=== PATIENT | male | born 1965 | race African-American/Black ===

== ENCOUNTER 2016-11-28 09:58 | Emergency (ER) | payer OTHER ==
[~2016-11-28] VITALS: Ht 188 cm; Wt 81.6 kg
[~2016-11-28 09:58] MED LIST: ALBUTEROL SULF8.5 GM INH; ALBUTEROL2.5 MG/3 M HHN; ALBUTEROL2.5 MG/3 M INH; AZITHROMYCIN250 MG ORAL; GABAPENTIN300 MG ORAL; IBUPROFEN200 MG ORAL; METFORMIN HCL500 M1 ORAL; NKM; NORCO 5-325 TA1 EACH ORAL; PREDNISONE20 MG ORAL; PREDNISONE20 MG PO
[2016-11-28 10:00] VITALS: BP 110/72
[2016-11-28] MEDS ORDERED: Neosporin Oint Ud Pkt TOP ONE (10:15)
[2016-11-28] MEDS ORDERED: IBUPROFEN600 MG ORAL (11:00)
[2016-11-28] MEDS ORDERED: TRAMADOL HCL50 MG ORAL (11:00)
[2016-11-28 11:20] VITALS: BP 110/72
--- NOTE | 2016-11-28 12:46 | Diagnostic Imaging Report ---
Indication: Pain Findings: 3 views of the right wrist were obtained. There is an acute ulnar styloid fracture demonstrated. There is soft tissue swelling over the colon and dorsum of the hand. Alignment is normal. Impression: Acute ulna styloid fracture. Soft tissue swelling
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
== END 2016-11-28 11:20 | disposition home or self-care (01) ==
LOC: EDBD 09:58 → EMR 10:33
DX: S62.101A Fracture of unspecified carpal bone, right wrist, initial encounter for closed fracture (principal); V29.9XXA Motorcycle rider (driver) (passenger) injured in unspecified traffic accident, initial encounter; Y93.9 Activity, unspecified; Y92.9 Unspecified place or not applicable; E11.9 Type 2 diabetes mellitus without complications; J45.909 Unspecified asthma, uncomplicated
CPT/HCPCS: 29240; 29260; 99284

== ENCOUNTER 2016-12-16 16:57 | Emergency (ER) | payer OTHER ==
[~2016-12-16] VITALS: Ht 185.4 cm; Wt 67.1 kg
[~2016-12-16 16:57] MED LIST changes: +IBUPROFEN600 MG ORAL; +TRAMADOL HCL50 MG ORAL
[2016-12-16 17:10] VITALS: BP 124/76
[2016-12-16 17:43] LABS: BASOPHILS % (AUTO) 0.9 % (0.0-2.0); EOSINOPHILS % (AUTO) 2.9 % (0.0-3.0); LYMPHOCYTES % (AUTO) 29.6 % (20.0-45.0); MEAN CORPUSCULAR HEMOGLOBIN 32.5 PG (27.0-31.0); MEAN CORPUSCULAR HGB CONC 36.1 G/DL (32.0-36.0); MEAN CORPUSCULAR VOLUME 90 FL (80-99); MEAN PLATELET VOLUME 6.9 FL (6.5-10.1); MONOCYTES % (AUTO) 6.1 % (1.0-10.0); NEUTROPHILS % (AUTO) 60.5 % (45.0-75.0); PLATELET COUNT 250 K/UL (150-450); RED BLOOD COUNT 4.93 M/UL (4.70-6.10); RED CELL DISTRIBUTION WIDTH 11.7 % (11.6-14.8); WHITE BLOOD COUNT 9.3 K/UL (4.8-10.8)
[2016-12-16 17:57] LABS: ALANINE AMINOTRANSFERASE 66 U/L (3-41); ALBUMIN/GLOBULIN RATIO 1.3 (1.0-2.7); ANION GAP 15 (5-15); ASPARTATE AMINO TRANSFERASE 52 U/L (5-40); CALCIUM 9.1 mg/dL (8.6-10.2); CARBON DIOXIDE 24 mEQ/L (20-30); CHLORIDE 95 mEQ/L (98-107); CREATININE 1.1 mg/dL (0.7-1.2); GLOMERULAR FILTRATION RATE > 60 mL/min (>60); HEMOLYSIS 3; MAGNESIUM 1.7 mg/dL (1.7-2.5); POTASSIUM 4.6 mEQ/L (3.4-4.9); SODIUM 134 mEQ/L (135-145); TOTAL PROTEIN 6.8 g/dL (6.6-8.7)
[2016-12-16 19:04] VITALS: BP 115/97
[2016-12-16 19:16] LABS: APPEARANCE,URINE CLEAR; KETONES,URINE NEGATIVE (NEGATIVE); LEUKOCYTE ESTERASE ,URINE NEGATIVE (NEGATIVE); NITRITE,URINE NEGATIVE (NEGATIVE); PH,URINE 5 (4.5-8.0); PROTEIN,URINE NEGATIVE (NEGATIVE); UROBILINOGEN,URINE NORMAL MG/DL (0.0-1.0)
--- NOTE | 2016-12-17 18:18 | Emergency Room Report ---
History of Present Illness General Chief Complaint: Abnormal Labs Source: Patient Present Illness HPI 51-year-old male presents ED for evaluation. Patient is a diabetic and states he checked his blood sugar this morning and it was critically high. Patient states he is compliant with his medications. Has not missed a dose. Feels dehydrated and weak. Denies any fevers or chills. Denies chest pain or shortness of breath. Denies nausea or vomiting. No other aggravating relieving factors. Denies any other associated symptoms Allergies: Coded Allergies: No Known Allergies (Unverified , 06/15/12) Patient History Past Medical History: DM, asthma Past Surgical History: none Pertinent Family History: none Social History: Denies: alcohol use, drug use, smoking Immunizations: UTD Reviewed Nursing Documentation: PMH: Agreed, PSxH: Agreed Nursing Documentation-PMH Past Medical History: No History, Except For Hx Cardiac Problems: No Hx Hypertension: No Hx Asthma: Yes Hx Diabetes: Yes Review of Systems All Other Systems: negative except mentioned in HPI Physical Exam Vital Signs Date Time Temp Pulse Resp B/P Pulse Ox O2 Delivery O2 Flow Rate FiO2 12/16/16 17:00 98.2 90 18 107/70 96 Room Air Sp02 EP Interpretation: reviewed, normal General Appearance: no apparent distress, alert, GCS 15, non-toxic Head: normocephalic, atraumatic Eyes: bilateral eye PERRL, bilateral eye normal inspection ENT: hearing grossly normal, normal pharynx, no angioedema, normal voice Neck: full range of motion, supple/symm/no masses Respiratory: chest non-tender, lungs clear, normal breath sounds, speaking full sentences Cardiovascular #1: regular rate, rhythm, no edema Cardiovascular #2: 2+ carotid (R), 2+ carotid (L), 2+ radial (R), 2+ radial (L) , 2+ dorsalis pedis (R), 2+ dorsalis pedis (L) Gastrointestinal: normal bowel sounds, non tender, soft, non-distended, no guarding, no rebound Rectal: deferred Genitourinary: normal inspection, no CVA tenderness Musculoskeletal: back normal, gait/station normal, normal range of motion, non- tender Neurologic: alert, oriented x3, responsive, motor strength/tone normal, sensory intact, speech normal Psychiatric: judgement/insight normal, memory normal, mood/affect normal, no suicidal/homicidal ideation Reflexes: 3+ bicep (R), 3+ bicep (L), 3+ tricep (R), 3+ tricep (L), 3+ knee (R) , 3+ knee (L) Skin: normal color, no rash, warm/dry, well hydrated Lymphatic: no adenopathy Medical Decision Making Diagnostic Impression: Primary Impression: Hyperglycemia ER Course Hospital Course 51-year-old male presenting to ED with elevated BS. feeling weak and dehydration Differential diagnoses include: ETOH/drug ingestion, sepsis, DKA Clinical course Patient placed on stretcher. 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 After initial history and physical I ordered labs, IV fluids Labs-glucose 507, no anion gap, bicarbonate normal, electrolytes ok. no leukocytosis. acetone negative After 2 L IV fluids patient Accu-Chek improved. Patient feels better i. I feel this is a highly complex case requiring extensive working including EKG/Rhythm strip, Xray/CT/US, Blood/urine lab work, repeat exams while in ED, and administration of strong opiates/narcotics for pain control, admission to hospital or close patient follow up. diagnosis - hyperglycemia Stable and discharged to home. Followup with PMD. Return to ED if symptoms recur or worsen Labs Test 12/16/16 17:21 12/16/16 18:49 White Blood Count 9.3 K/UL (4.8-10.8) Red Blood Count 4.93 M/UL (4.70-6.10) Hemoglobin 16.0 G/DL (14.2-18.0) Hematocrit 44.4 % (42.0-52.0) Mean Corpuscular Volume 90 FL (80-99) Mean Corpuscular Hemoglobin 32.5 PG (27.0-31.0) Mean Corpuscular Hemoglobin Concent 36.1 G/DL (32.0-36.0) Red Cell Distribution Width 11.7 % (11.6-14.8) Platelet Count 250 K/UL (150-450) Mean Platelet Volume 6.9 FL (6.5-10.1) Neutrophils (%) (Auto) 60.5 % (45.0-75.0) Lymphocytes (%) (Auto) 29.6 % (20.0-45.0) Monocytes (%) (Auto) 6.1 % (1.0-10.0) Eosinophils (%) (Auto) 2.9 % (0.0-3.0) Basophils (%) (Auto) 0.9 % (0.0-2.0) Sodium Level 134 mEQ/L (135-145) Potassium Level 4.6 mEQ/L (3.4-4.9) Chloride Level 95 mEQ/L (98-107) Carbon Dioxide Level 24 mEQ/L (20-30) Anion Gap 15 (5-15) Blood Urea Nitrogen 18 mg/dL (7-23) Creatinine 1.1 mg/dL (0.7-1.2) Estimat Glomerular Filtration Rate > 60 mL/min (>60) Glucose Level 507 mg/dL (74-106) Calcium Level 9.1 mg/dL (8.6-10.2) Magnesium Level 1.7 mg/dL (1.7-2.5) Total Bilirubin 0.2 mg/dL (0.0-1.2) Aspartate Amino Transf (AST/SGOT) 52 U/L (5-40) Alanine Aminotransferase (ALT/SGPT) 66 U/L (3-41) Alkaline Phosphatase 279 U/L (40-129) Total Protein 6.8 g/dL (6.6-8.7) Albumin 3.9 g/dL (3.5-5.2) Globulin 2.9 g/dL Albumin/Globulin Ratio 1.3 (1.0-2.7) Acetone Level Negative (NEGATIVE) Urine Color Pale yellow Urine Appearance Clear Urine pH 5 (4.5-8.0) Urine Specific [place] 1.010 (1.005-1.035) Urine Protein Negative (NEGATIVE) Urine Glucose (UA) 4+ (NEGATIVE) Urine Ketones Negative (NEGATIVE) Urine Occult Blood Negative (NEGATIVE) Urine Nitrite Negative (NEGATIVE) Urine Bilirubin Negative (NEGATIVE) Urine Urobilinogen Normal MG/DL (0.0-1.0) Urine Leukocyte Esterase Negative (NEGATIVE) Last Vital Signs Date Time Temp Pulse Resp B/P Pulse Ox O2 Delivery O2 Flow Rate FiO2 12/16/16 19:04 83 21 115/97 98 Room Air 12/16/16 17:10 98.3 Status: improved Disposition: HOME, SELF-CARE Condition: Stable Referrals: [facility]ERR[facility] (PCP) Patient Instructions: Hyperglycemia, [id number] SANTINO HONG M.D. December 17, 2016 18:18
== END 2016-12-16 19:06 | disposition home or self-care (01) ==
LOC: EDBD 16:57 → EMR 17:20
DX: E11.65 Type 2 diabetes mellitus with hyperglycemia (principal); R53.1 Weakness; J45.909 Unspecified asthma, uncomplicated
CPT/HCPCS: 36415; 80053; 81003; 82009; 82962; 83735; 85025; 96360; 96361

== ENCOUNTER 2017-06-01 20:52 | Emergency (ER) | payer OTHER ==
[~2017-06-01] VITALS: Ht 177.8 cm; Wt 77.1 kg
[2017-06-01] MEDS ORDERED: LANTUS SOL100 UNIT/1 SUBQ (21:00)
[2017-06-01 21:28] VITALS: BP 105/75
--- NOTE | 2017-06-01 21:47 | Emergency Room Report ---
History of Present Illness General Chief Complaint: Generalized Weakness Source: Patient, EMS Present Illness HPI 51-year-old male history of diabetes compliant with medications presenting with generalized weakness and total body pain. Patient states symptoms started today. Cannot give any detailed information, just states that he has generally felt weak and in pain. Pain is worse with movement. Denies any fever chills chest pain shortness of breath nausea vomiting diarrhea. Patient has been eating and drinking well today. Patient came from home. Denies trauma Allergies: Coded Allergies: No Known Allergies (Unverified , 06/15/12) Patient History Past Medical History: see triage record Past Surgical History: none Pertinent Family History: none Reviewed Nursing Documentation: PMH: Agreed, PSxH: Agreed Nursing Documentation-PMH Past Medical History: No History, Except For Hx Cardiac Problems: No Hx Hypertension: No Hx Asthma: Yes Hx Diabetes: Yes Review of Systems All Other Systems: negative except mentioned in HPI Physical Exam Vital Signs Date Time Temp Pulse Resp B/P (MAP) Pulse Ox O2 Delivery O2 Flow Rate FiO2 06/01/17 20:57 98.4 90 16 118/64 95 Room Air Sp02 EP Interpretation: reviewed, normal General Appearance: normal inspection, well appearing, no apparent distress, alert, GCS 15, non-toxic Head: normocephalic, atraumatic Eyes: bilateral eye normal inspection, bilateral eye PERRL, bilateral eye EOMI ENT: normal ENT inspection, normal pharynx, normal voice, moist mucus membranes Neck: normal inspection, full range of motion, supple Respiratory: normal inspection, lungs clear, normal breath sounds, no respiratory distress, no retraction, no wheezing, speaking full sentences, chest symmetrical Cardiovascular #1: normal inspection, regular rate, rhythm, no edema, normal capillary refill Cardiovascular #2: 2+ radial (R), 2+ radial (L) Gastrointestinal: normal inspection, non tender, soft, non-distended, no guarding Genitourinary: no CVA tenderness Musculoskeletal: normal inspection, back normal, normal range of motion, non- tender Neurologic: normal inspection, alert, oriented x3, responsive, motor strength/ tone normal, sensory intact, normal gait, speech normal Psychiatric: normal inspection, judgement/insight normal, memory normal Skin: normal inspection, normal color, no rash, warm/dry, well hydrated, normal turgor Medical Decision Making Diagnostic Impression: Primary Impression: Hyperglycemia Additional Impression: Episode of generalized weakness ER Course 51-year-old male with diabetes, appears very well at bedside, vital signs are normal, presenting with generalized weakness and total body pain DDX: Hypoglycemia, dehydration Rule out DKA Infectious: UTI/pneumonia Plan: Obtain labs, ua, ucx, CXR, EKG Acetone IV fluids ER course: Patient has remained stable during ED stay. Right upper lobe consolidation noted on chest x-ray, patient states a few weeks ago he just had pneumonia, states that he is not having any cough, shortness of breath, fever chills or night sweats. Patient states that he has been a chronic smoker, denies any weight loss. States that he does have a doctor I instructed patient that after discharge she has to followup with a repeat chest x-ray or CAT scan of his chest Received fluids feels much better Disposition: Patient is to be discharged to home. Patient is instructed to follow up with their primary care doctor within 5 days. Strict return precautions discussed with patient such as fever, chills, worsening/severe pain, nausea, vomiting, which may indicate severe illness. Patient verbalizes understanding and agrees with plan. Please note that this Emergency Department Report was dictated using [employer]virtual reality specialist technology software, occasionally this can lead to erroneous entry secondary to interpretation by the dictation equipment EKG Diagnostic Results EP Interpretation: Yes Rate: normal Rhythm: NSR ST Segments: peaked T waves V3 V4 ASA given to patient: No Rhythm Strip EP Interpretation: Yes Rate: 83 Rhythm: NSR, no PVCs, no ectopy Chest X-ray CXR: Ordered: Yes 1 view Indication: Chest pain EP interpretation: Yes Interpretation: Questionable right upper lobe consolidation, possible mass Impression: questionable RUL consolidation/mass compared to 2016 Electronically signed by Kailash Henley MD Laboratory Tests Test 06/01/17 21:18 06/01/17 21:26 Arterial Blood pH 7.496 (7.350-7.450) Arterial Blood Partial Pressure CO2 31.7 mmHg (35.0-45.0) L Arterial Blood Partial Pressure O2 104.4 mmHg (75.0-100.0) H Arterial Blood HCO3 23.9 mmol/L (22.0-26.0) Arterial Blood Oxygen Saturation 97.5 % (92.0-98.0) Arterial Blood Base Excess 1.5 Jacob Test Positive White Blood Count 13.8 K/UL (4.8-10.8) H Red Blood Count 4.64 M/UL (4.70-6.10) L Hemoglobin 14.1 G/DL (14.2-18.0) L Hematocrit 42.8 % (42.0-52.0) Mean Corpuscular Volume 92 FL (80-99) Mean Corpuscular Hemoglobin 30.5 PG (27.0-31.0) Mean Corpuscular Hemoglobin Concent 33.0 G/DL (32.0-36.0) Red Cell Distribution Width 11.4 % (11.6-14.8) L Platelet Count 396 K/UL (150-450) Mean Platelet Volume 6.3 FL (6.5-10.1) L Neutrophils (%) (Auto) 67.9 % (45.0-75.0) Lymphocytes (%) (Auto) 21.2 % (20.0-45.0) Monocytes (%) (Auto) 9.4 % (1.0-10.0) Eosinophils (%) (Auto) 1.0 % (0.0-3.0) Basophils (%) (Auto) 0.5 % (0.0-2.0) Sodium Level 129 MMOL/L (136-145) L Potassium Level 4.7 MMOL/L (3.5-5.1) Chloride Level 95 MMOL/L (98-107) L Carbon Dioxide Level 28 MMOL/L (21-32) Anion Gap 6 mmol/L (5-15) Blood Urea Nitrogen 19 mg/dL (7-18) H Creatinine 1.1 MG/DL (0.55-1.30) Estimate Glomerular Filtration Rate > 60 mL/min (>60) Glucose Level 441 MG/DL (74-106) H Calcium Level 9.3 MG/DL (8.5-10.1) Magnesium Level 1.6 MG/DL (1.8-2.4) L Total Bilirubin 0.3 MG/DL (0.2-1.0) Aspartate Amino Transferase (AST) 16 U/L (15-37) Alanine Aminotransferase (ALT) 18 U/L (12-78) Alkaline Phosphatase 138 U/L (46-116) H Total Protein 7.6 G/DL (6.4-8.2) Albumin 2.7 G/DL (3.4-5.0) L Globulin 4.9 g/dL Albumin/Globulin Ratio 0.6 (1.0-2.7) L Acetone Level Negative (NEGATIVE) Last Vital Signs Date Time Temp Pulse Resp B/P (MAP) Pulse Ox O2 Delivery O2 Flow Rate FiO2 06/01/17 21:28 98.4 87 18 105/75 95 Room Air Disposition: HOME, SELF-CARE Condition: Improved Kailash Henley M.D. Jun 01, 2017 21:47
[2017-06-01 22:01] LABS: BASOPHILS % (AUTO) 0.5 % (0.0-2.0); HEMATOCRIT 42.8 % (42.0-52.0); HEMOGLOBIN 14.1 G/DL (14.2-18.0); LYMPHOCYTES % (AUTO) 21.2 % (20.0-45.0); MEAN CORPUSCULAR VOLUME 92 FL (80-99); MONOCYTES % (AUTO) 9.4 % (1.0-10.0); NEUTROPHILS % (AUTO) 67.9 % (45.0-75.0); PLATELET COUNT 396 K/UL (150-450); RED BLOOD COUNT 4.64 M/UL (4.70-6.10); RED CELL DISTRIBUTION WIDTH 11.4 % (11.6-14.8); WHITE BLOOD COUNT 13.8 K/UL (4.8-10.8)
[2017-06-01 22:13] LABS: ALANINE AMINOTRANSFERASE 18 U/L (12-78); ALBUMIN 2.7 G/DL (3.4-5.0); ALBUMIN/GLOBULIN RATIO 0.6 (1.0-2.7); ALKALINE PHOSPHATASE 138 U/L (46-116); ANION GAP 6 mmol/L (5-15); ASPARTATE AMINO TRANSFERASE 16 U/L (15-37); BILIRUBIN,TOTAL 0.3 MG/DL (0.2-1.0); BLOOD UREA NITROGEN 19 mg/dL (7-18); CALCIUM 9.3 MG/DL (8.5-10.1); CARBON DIOXIDE 28 MMOL/L (21-32); CHLORIDE 95 MMOL/L (98-107); CREATININE 1.1 MG/DL (0.55-1.30); POTASSIUM 4.7 MMOL/L (3.5-5.1); SODIUM 129 MMOL/L (136-145)
[2017-06-01] MEDS ORDERED: Ketorolac 30mg Inj IV ONE (22:30)
[2017-06-01 23:30] VITALS: BP 109/85
[2017-06-02 02:35] VITALS: BP 104/73
[2017-06-02 02:51] VITALS: BP 104/73
--- NOTE | 2017-06-02 09:09 | Diagnostic Imaging Report ---
Indication: PAIN Technique: XRAY CHEST 1 V Comparison:01/16/2016 Findings: The heart is normal in size. There are apical bullous changes. Opacification is noted in the right upper lobe. There is slight blunting of the right left angle is chronic. Bony structures are unremarkable. There also appears to be slight opacification of the left upper lobe but this may have been present previously. Impression: Opacification in the right upper lobe. This has an unusual configuration and may represent infiltrate in the right upper lobe between blade opacification of the bolus. Slight opacification in the left upper lobe, likely chronic. CT chest may be helpful for better evaluation. Report Emphysema.
--- NOTE | 2017-06-02 14:39 | Cardiology Report ---
APPROVED REPORT EKG Measurement Heart [id number] Normal sinus rhythm Left axis deviation Septal infarct, age undetermined Abnormal ECG
--- NOTE | 2017-06-02 14:39 | Cardiology Report ---
APPROVED REPORT EKG Measurement Heart [id number] [place] [id number] Normal sinus rhythm Left axis deviation Septal infarct, age undetermined Abnormal ECG
--- NOTE | 2017-06-02 14:39 | Cardiology Report ---
APPROVED REPORT EKG Measurement Heart [id number] Normal sinus rhythm Left axis deviation Septal infarct, age undetermined Abnormal ECG
== END 2017-06-02 02:51 | disposition home or self-care (01) ==
LOC: EDUNIT# 20:52 → EDBD 20:52 → EMR 21:13
DX: E11.65 Type 2 diabetes mellitus with hyperglycemia (principal); R53.1 Weakness; J45.909 Unspecified asthma, uncomplicated; J43.9 Emphysema, unspecified; Z87.01 Personal history of pneumonia (recurrent); Z87.891 Personal history of nicotine dependence
CPT/HCPCS: 36415; 36600; 71010; 80053; 82009; 82803; 82962; 83735; 85025; 93005; 96374; 96375; 99284; J1815

== ENCOUNTER 2018-10-21 20:20 | Emergency (ER) | payer OTHER ==
[~2018-10-21] VITALS: Ht 172.7 cm; Wt 63.5 kg
[2018-10-21 20:20] VITALS: BP 122/84
[~2018-10-21 20:20] MED LIST changes: +LANTUS SOL100 UNIT/1 SUBQ; +METFORMIN HCL1000 M1 ORAL
--- NOTE | 2018-10-21 20:20 | NUR ---
ED Nurse Note: Patient presents with complaints of chest pain x `1 day, recurrent. Patient reports intermittent pain 10/10 on pain scale. no other s/s reported.
[2018-10-21] MEDS ORDERED: Morphine Sulfate 2mg/ml Inj(IV/IM USE ONLY) IVP ONE (20:45)
[2018-10-21 20:51] LABS: APPEARANCE,URINE CLEAR; BASOPHILS % (AUTO) 0.8 % (0.0-2.0); BILIRUBIN, URINE NEGATIVE (NEGATIVE); COLOR,URINE PALE YELLOW; EOSINOPHILS % (AUTO) 2.7 % (0.0-3.0); GLUCOSE, URINE (UA) 4+ (NEGATIVE); HEMOGLOBIN 16.3 G/DL (14.2-18.0); KETONES,URINE NEGATIVE (NEGATIVE); LEUKOCYTE ESTERASE ,URINE 1+ (NEGATIVE); MEAN CORPUSCULAR VOLUME 91 FL (80-99); MONOCYTES % (AUTO) 6.6 % (1.0-10.0); NEUTROPHILS % (AUTO) 51.9 % (45.0-75.0); NITRITE,URINE NEGATIVE (NEGATIVE); PH,URINE 5 (4.5-8.0); PLATELET COUNT 199 K/UL (150-450); PROTEIN,URINE NEGATIVE (NEGATIVE); RED BLOOD COUNT 5.29 M/UL (4.70-6.10); RED CELL DISTRIBUTION WIDTH 11.1 % (11.6-14.8); UROBILINOGEN,URINE NORMAL MG/DL (0.0-1.0); WHITE BLOOD COUNT 10.3 K/UL (4.8-10.8)
[2018-10-21 20:54] VITALS: BP 126/91
--- NOTE | 2018-10-21 20:56 | NUR ---
ED Nurse Note: Patient tolerated medication well, IV fluids hung, labs drawn, urine specimen collected and sent down to lab. Patient is currently undergoing EKG, instructional technology facilitator at bedside.
[2018-10-21 21:03] LABS: ANION GAP 9 mmol/L (5-15); BLOOD UREA NITROGEN 12 mg/dL (7-18); CALCIUM 9.1 MG/DL (8.5-10.1); CARBON DIOXIDE 27 MMOL/L (21-32); CHLORIDE 98 MMOL/L (98-107); POTASSIUM 3.8 MMOL/L (3.5-5.1); SODIUM 134 MMOL/L (136-145)
[2018-10-21 21:13] LABS: ALANINE AMINOTRANSFERASE 68 U/L (12-78); ALBUMIN 3.7 G/DL (3.4-5.0); ALKALINE PHOSPHATASE 139 U/L (46-116); ASPARTATE AMINO TRANSFERASE 31 U/L (15-37); BILIRUBIN,TOTAL 0.3 MG/DL (0.2-1.0)
--- NOTE | 2018-10-21 21:19 | NUR ---
ED Nurse Note: Patient reports a pain level of 7/10, will inform ERMD.
[2018-10-21] MEDS ORDERED: Insulin Human Regular 100units/ml 3ml IV ONE (21:30)
--- NOTE | 2018-10-21 21:48 | Emergency Room Report ---
History of Present Illness General Chief Complaint: Chest Pain Source: Patient (Matteo Roberts MD) Present Illness HPI 52-year-old male presents ED for evaluation. Brought in by EMS complaining of chest pain. Started earlier today. Midsternal, 8 out of 10, sharp, nonradiating. Denies shortness of breath. Denies history of hypertension. Notes diabetes. Accu-Chek in ED over 400. States he is compliant with his medications. Denies smoking or drug use. States he's been seen at multiple ERs recently for similar chest pain. Has had workups done and was told that everything was normal and was subsequent discharge. No other aggravating relieving factors. Denies any other associated symptoms (Matteo Roberts MD) Allergies: Coded Allergies: No Known Allergies (Unverified , 06/15/12) Patient History Past Medical History: DM, asthma Past Surgical History: none Pertinent Family History: none Social History: Denies: smoking, alcohol use, drug use Immunizations: UTD Reviewed Nursing Documentation: PMH: Agreed; PSxH: Agreed (Matteo Roberts MD) Nursing Documentation-PMH Hx Cardiac Problems: No Hx Hypertension: No Hx Asthma: Yes Hx Diabetes: Yes (Matteo Roberts MD) Review of Systems All Other Systems: negative except mentioned in HPI (Matteo Roberts MD) Physical Exam Vital Signs Date Time Temp Pulse Resp B/P (MAP) Pulse Ox O2 Delivery O2 Flow Rate FiO2 10/21/18 20:15 98.2 82 18 122/84 98 Room Air Sp02 EP Interpretation: reviewed, normal General Appearance: no apparent distress, alert, GCS 15, non-toxic Head: normocephalic, atraumatic Eyes: bilateral eye normal inspection, bilateral eye PERRL ENT: hearing grossly normal, normal pharynx, no angioedema, normal voice Neck: full range of motion, supple/symm/no masses Respiratory: chest non-tender, lungs clear, normal breath sounds, speaking full sentences Cardiovascular #1: regular rate, rhythm, no edema Cardiovascular #2: 2+ carotid (R), 2+ carotid (L), 2+ radial (R), 2+ radial (L) , 2+ dorsalis pedis (R), 2+ dorsalis pedis (L) Gastrointestinal: normal bowel sounds, non tender, soft, non-distended, no guarding, no rebound Rectal: deferred Genitourinary: normal inspection, no CVA tenderness Musculoskeletal: back normal, gait/station normal, normal range of motion, non- tender Neurologic: alert, oriented x3, responsive, motor strength/tone normal, sensory intact, speech normal Psychiatric: judgement/insight normal, memory normal, mood/affect normal, no suicidal/homicidal ideation Reflexes: 3+ bicep (R), 3+ bicep (L), 3+ tricep (R), 3+ tricep (L), 3+ knee (R) , 3+ knee (L) Skin: normal color, no rash, warm/dry, well hydrated Lymphatic: no adenopathy (Matteo Roberts MD) Medical Decision Making Diagnostic Impression: Primary Impression: Chest pain Additional Impression: Uncontrolled diabetes mellitus ER Course Patient is a fairly complex patient with multiple differential to consideration including but not limited to cardiac cardiopulmonary and vascular emergencies I do agree with the initial history and exam as well At this time patient pending further blood work At this t glucose appears abnormally elevated EKG appears appropriate Patient's glucose is address in the ER patient however does not show any signs of acidosis Glucose reacting appropriately coming down nicely and patient stable for close outpatient follow-up Labs Test 10/21/18 20:25 White Blood Count 10.3 K/UL (4.8-10.8) Red Blood Count 5.29 M/UL (4.70-6.10) Hemoglobin 16.3 G/DL (14.2-18.0) Hematocrit 48.0 % (42.0-52.0) Mean Corpuscular Volume 91 FL (80-99) Mean Corpuscular Hemoglobin 30.7 PG (27.0-31.0) Mean Corpuscular Hemoglobin Concent 33.9 G/DL (32.0-36.0) Red Cell Distribution Width 11.1 % (11.6-14.8) Platelet Count 199 K/UL (150-450) Mean Platelet Volume 6.4 FL (6.5-10.1) Neutrophils (%) (Auto) 51.9 % (45.0-75.0) Lymphocytes (%) (Auto) 38.0 % (20.0-45.0) Monocytes (%) (Auto) 6.6 % (1.0-10.0) Eosinophils (%) (Auto) 2.7 % (0.0-3.0) Basophils (%) (Auto) 0.8 % (0.0-2.0) Urine Color Pale yellow Urine Appearance Clear Urine pH 5 (4.5-8.0) Urine Specific [place] 1.010 (1.005-1.035) Urine Protein Negative (NEGATIVE) Urine Glucose (UA) 4+ (NEGATIVE) Urine Ketones Negative (NEGATIVE) Urine Blood Negative (NEGATIVE) Urine Nitrite Negative (NEGATIVE) Urine Bilirubin Negative (NEGATIVE) Urine Urobilinogen Normal MG/DL (0.0-1.0) Urine Leukocyte Esterase 1+ (NEGATIVE) Urine RBC 0-2 /HPF (0 - 0) Urine WBC 0-2 /HPF (0 - 0) Urine Squamous Epithelial Cells Occasional /LPF Urine Bacteria Occasional /HPF (NONE) Sodium Level 134 MMOL/L (136-145) Potassium Level 3.8 MMOL/L (3.5-5.1) Chloride Level 98 MMOL/L (98-107) Carbon Dioxide Level 27 MMOL/L (21-32) Anion Gap 9 mmol/L (5-15) Blood Urea Nitrogen 12 mg/dL (7-18) Creatinine 1.0 MG/DL (0.55-1.30) Estimat Glomerular Filtration Rate > 60 mL/min (>60) Glucose Level 492 MG/DL (74-106) Calcium Level 9.1 MG/DL (8.5-10.1) Magnesium Level 1.5 MG/DL (1.8-2.4) Total Bilirubin 0.3 MG/DL (0.2-1.0) Aspartate Amino Transf (AST/SGOT) 31 U/L (15-37) Alanine Aminotransferase (ALT/SGPT) 68 U/L (12-78) Alkaline Phosphatase 139 U/L (46-116) Troponin I 0.000 ng/mL (0.000-0.056) Pro-B-Type Natriuretic Peptide 37 pg/mL (0-125) Total Protein 7.5 G/DL (6.4-8.2) Albumin 3.7 G/DL (3.4-5.0) Globulin 3.8 g/dL Albumin/Globulin Ratio 1.0 (1.0-2.7) Urine Opiates Screen Negative (NEGATIVE) Urine Barbiturates Screen Negative (NEGATIVE) Phencyclidine (PCP) Screen Negative (NEGATIVE) Urine Amphetamines Screen Negative (NEGATIVE) Urine Benzodiazepines Screen Negative (NEGATIVE) Urine Cocaine Screen Negative (NEGATIVE) Urine Marijuana (THC) Screen Positive (NEGATIVE) Acetone Level Negative (NEGATIVE) (Claudette Dykes DO) EKG Diagnostic Results Rate: normal Rhythm: NSR ST Segments: no acute changes (Claudette Dykes DO) Rhythm Strip Diag. Results EP Interpretation: yes Rate: 70 Rhythm: NSR, no PVC's, no ectopy (Claudette Dykes DO) Chest X-Ray Diagnostic Results Chest X-Ray Diagnostic Results : Chest X-Ray Ordered: Yes # of Views/Limited/Complete: 1 View Indication: Chest Pain EP Interpretation: Yes Interpretation: no consolidation, no effusion, no pneumothorax Impression: No acute disease - COPD appearance Electronically Signed by: Claudette Dykes DO (Claudette Dykes DO) Last Vital Signs Date Time Temp Pulse Resp B/P (MAP) Pulse Ox O2 Delivery O2 Flow Rate FiO2 10/21/18 21:18 98.2 10/21/18 20:54 80 16 126/91 99 Room Air (Matteo Roberts MD) Status: improved (Claudette Dykes DO) Disposition: HOME, SELF-CARE Condition: Improved Additional Instructions: Patient is provided with the discharge instructions notified to follow up with primary doctor in the next 2-3 days otherwise return to the er with any worsening symptoms. Please note that this report is being documented using [employer] technology. This can lead to erroneous entry secondary to incorrect interpretation by the dictating instrument. Matteo Roberts MD Oct 21, 2018 21:48 Claudette Dykes DO Oct 22, 2018 03:18
--- NOTE | 2018-10-21 23:19 | NUR ---
ED Nurse Note: Patient cleared for discharge, no s/s of acute distress. Patient is ambulatory with steady gait, ID band removed, IV removed, patient verbalized understanding of discharge instructions. Patient departed with all belongings, and called sister to be picked up. patient escorted to discharge desk.
[2018-10-21 23:21] VITALS: BP 117/96
--- NOTE | 2018-10-22 19:15 | Diagnostic Imaging Report ---
Indication: Chest pain Comparison: 06/01/2017 A single view chest radiograph was obtained. Findings: Previous infiltrate in the right upper lobe has resolved. Bullous changes again noted in the upper lobes. Heart size remains normal. Bones are unremarkable. IMPRESSION: Bullous emphysema
--- NOTE | 2018-10-22 19:17 | Cardiology Report ---
APPROVED REPORT EKG Measurement Heart [id number] Normal sinus rhythm Septal infarct, age undetermined Abnormal ECG
== END 2018-10-21 23:23 | disposition home or self-care (01) ==
LOC: EDBD 20:20 → EMR 20:54
DX: R07.89 Other chest pain (principal); E11.65 Type 2 diabetes mellitus with hyperglycemia; J45.909 Unspecified asthma, uncomplicated
CPT/HCPCS: 36415; 71045; 80053; 80307; 81003; 82009; 82962; 83735; 83880; 84484; 85025; 93005; 96361; 96374; 96375; 99284; J1815; J2270

== ENCOUNTER 2018-10-23 17:02 | Emergency (ER) | payer OTHER ==
[~2018-10-23] VITALS: Ht 185.4 cm; Wt 58.1 kg
--- NOTE | 2018-10-23 17:18 | Emergency Room Report ---
History of Present Illness General Chief Complaint: Chest Pain Source: Patient, EMS Present Illness HPI 52-year-old male presents ED for evaluation. Brought in by EMS for palpitations. Per EMS patient was in SVT. Was given 6 mg then 12 mg of adenosine with conversion. Patient stated he was having some chest pain at the time. Started 3 hours ago. Denies chest pain at this time. Admits to marijuana use today. Denies any other drug use. Denies alcohol use. States this is his first episode of SVT. Does not take medication for this. Is a diabetic. No other aggravating relieving factors. Denies any other associated symptoms Allergies: Coded Allergies: No Known Allergies (Unverified , 06/15/12) Patient History Past Medical History: DM, asthma Past Surgical History: none Pertinent Family History: none Social History: Denies: smoking, alcohol use, drug use Immunizations: UTD Reviewed Nursing Documentation: PMH: Agreed; PSxH: Agreed Nursing Documentation-PMH Hx Cardiac Problems: No Hx Hypertension: No Hx Asthma: Yes Hx Diabetes: Yes Review of Systems All Other Systems: negative except mentioned in HPI Physical Exam Vital Signs Date Time Temp Pulse Resp B/P (MAP) Pulse Ox O2 Delivery O2 Flow Rate FiO2 10/23/18 16:58 97.5 82 16 109/67 99 Room Air Sp02 EP Interpretation: reviewed, normal General Appearance: no apparent distress, alert, GCS 15, non-toxic Head: normocephalic, atraumatic Eyes: bilateral eye normal inspection, bilateral eye PERRL ENT: hearing grossly normal, normal pharynx, no angioedema, normal voice Neck: full range of motion, supple/symm/no masses Respiratory: chest non-tender, lungs clear, normal breath sounds, speaking full sentences Cardiovascular #1: regular rate, rhythm, no edema Cardiovascular #2: 2+ carotid (R), 2+ carotid (L), 2+ radial (R), 2+ radial (L) , 2+ dorsalis pedis (R), 2+ dorsalis pedis (L) Gastrointestinal: normal bowel sounds, non tender, soft, non-distended, no guarding, no rebound Rectal: deferred Genitourinary: normal inspection, no CVA tenderness Musculoskeletal: back normal, gait/station normal, normal range of motion, non- tender Neurologic: alert, oriented x3, responsive, motor strength/tone normal, sensory intact, speech normal Psychiatric: judgement/insight normal, memory normal, mood/affect normal, no suicidal/homicidal ideation Reflexes: 3+ bicep (R), 3+ bicep (L), 3+ tricep (R), 3+ tricep (L), 3+ knee (R) , 3+ knee (L) Skin: normal color, no rash, warm/dry, well hydrated Lymphatic: no adenopathy Medical Decision Making Diagnostic Impression: Primary Impression: SVT (supraventricular tachycardia) ER Course Hospital Course 52-year-old M presents ED complaining of palpitations, CP. Differential diagnoses include: MS/unstable angina, Vtach, SVT, afib Clinical course Patient placed on stretcher. on manager cardiac. Initial rhythm from EMS shows SVT. given 6mg then 12 mg of adenosine with cardioversion achieved in the field. After initial history and physical I ordered labs, EKG, chest x-ray, IVFs labs reviewed- no leukocytosis, hemoglobin/hematocrit stable, electrolytes okay , troponins 0.127, Utox +THC EKG - NSR, no acute ischemic changes interpreted by me Chest x-ray- no acute process given aspirin. Case discussed with Dr. Fulton and he agreed to accept the patient to his service for further care and support I. I feel this is a highly complex case requiring extensive working including EKG/Rhythm strip, Xray/CT/US, Blood/urine lab work, repeat exams while in ED, and administration of strong opiates/narcotics for pain control, admission to hospital or close patient follow up. Diagnosis - SVT admitted to telemetry in serious condition Labs Test 10/23/18 17:35 10/23/18 18:55 White Blood Count 9.5 K/UL (4.8-10.8) Red Blood Count 5.02 M/UL (4.70-6.10) Hemoglobin 15.4 G/DL (14.2-18.0) Hematocrit 45.7 % (42.0-52.0) Mean Corpuscular Volume 91 FL (80-99) Mean Corpuscular Hemoglobin 30.7 PG (27.0-31.0) Mean Corpuscular Hemoglobin Concent 33.7 G/DL (32.0-36.0) Red Cell Distribution Width 11.4 % (11.6-14.8) Platelet Count 182 K/UL (150-450) Mean Platelet Volume 7.2 FL (6.5-10.1) Neutrophils (%) (Auto) 60.9 % (45.0-75.0) Lymphocytes (%) (Auto) 30.2 % (20.0-45.0) Monocytes (%) (Auto) 6.1 % (1.0-10.0) Eosinophils (%) (Auto) 1.7 % (0.0-3.0) Basophils (%) (Auto) 1.1 % (0.0-2.0) Sodium Level 140 MMOL/L (136-145) Potassium Level 3.5 MMOL/L (3.5-5.1) Chloride Level 106 MMOL/L (98-107) Carbon Dioxide Level 21 MMOL/L (21-32) Anion Gap 13 mmol/L (5-15) Blood Urea Nitrogen 14 mg/dL (7-18) Creatinine 1.2 MG/DL (0.55-1.30) Estimat Glomerular Filtration Rate > 60 mL/min (>60) Glucose Level 199 MG/DL (74-106) Calcium Level 8.7 MG/DL (8.5-10.1) Total Bilirubin 0.2 MG/DL (0.2-1.0) Aspartate Amino Transf (AST/SGOT) 32 U/L (15-37) Alanine Aminotransferase (ALT/SGPT) 49 U/L (12-78) Alkaline Phosphatase 120 U/L (46-116) Total Creatine Kinase 104 U/L (26-308) Creatine Kinase MB 1.9 NG/ML (0.0-3.6) Creatine Kinase MB Relative Index 1.8 Troponin I 0.127 ng/mL (0.000-0.056) Pro-B-Type Natriuretic Peptide 77 pg/mL (0-125) Total Protein 6.5 G/DL (6.4-8.2) Albumin 3.1 G/DL (3.4-5.0) Globulin 3.4 g/dL Albumin/Globulin Ratio 0.9 (1.0-2.7) Urine Opiates Screen Negative (NEGATIVE) Urine Barbiturates Screen Negative (NEGATIVE) Phencyclidine (PCP) Screen Negative (NEGATIVE) Urine Amphetamines Screen Negative (NEGATIVE) Urine Benzodiazepines Screen Negative (NEGATIVE) Urine Cocaine Screen Negative (NEGATIVE) Urine Marijuana (THC) Screen Positive (NEGATIVE) EKG Diagnostic Results Rate: normal Rhythm: NSR ST Segments: no acute changes ASA given to the pt in ED: Yes Rhythm Strip Diag. Results EP Interpretation: yes Rhythm: NSR, no PVC's, no ectopy Chest X-Ray Diagnostic Results Chest X-Ray Diagnostic Results : Chest X-Ray Ordered: Yes # of Views/Limited/Complete: 1 View Indication: Chest Pain EP Interpretation: Yes Interpretation: no consolidation, no effusion, no pneumothorax, no acute cardiopulmonary disease Impression: No acute disease Electronically Signed by: Electronically signed by Matteo Roberts MD Last Vital Signs Date Time Temp Pulse Resp B/P (MAP) Pulse Ox O2 Delivery O2 Flow Rate FiO2 10/23/18 16:58 97.5 82 16 109/67 99 Room Air Status: improved Disposition: ADMITTED INPATIENT Condition: Serious Matteo Roberts MD Oct 23, 2018 17:17
[2018-10-23 17:40] VITALS: BP 108/69
[2018-10-23 18:00] LABS: BASOPHILS % (AUTO) 1.1 % (0.0-2.0); EOSINOPHILS % (AUTO) 1.7 % (0.0-3.0); HEMATOCRIT 45.7 % (42.0-52.0); HEMOGLOBIN 15.4 G/DL (14.2-18.0); LYMPHOCYTES % (AUTO) 30.2 % (20.0-45.0); MEAN CORPUSCULAR VOLUME 91 FL (80-99); MONOCYTES % (AUTO) 6.1 % (1.0-10.0); NEUTROPHILS % (AUTO) 60.9 % (45.0-75.0); PLATELET COUNT 182 K/UL (150-450); RED BLOOD COUNT 5.02 M/UL (4.70-6.10); RED CELL DISTRIBUTION WIDTH 11.4 % (11.6-14.8); WHITE BLOOD COUNT 9.5 K/UL (4.8-10.8)
[2018-10-23 18:17] LABS: ANION GAP 13 mmol/L (5-15); BLOOD UREA NITROGEN 14 mg/dL (7-18); CALCIUM 8.7 MG/DL (8.5-10.1); CARBON DIOXIDE 21 MMOL/L (21-32); CHLORIDE 106 MMOL/L (98-107); CREATININE 1.2 MG/DL (0.55-1.30); POTASSIUM 3.5 MMOL/L (3.5-5.1); SODIUM 140 MMOL/L (136-145)
[2018-10-23 18:30] LABS: ALANINE AMINOTRANSFERASE 49 U/L (12-78); ALBUMIN 3.1 G/DL (3.4-5.0); ALBUMIN/GLOBULIN RATIO 0.9 (1.0-2.7); ALKALINE PHOSPHATASE 120 U/L (46-116); ASPARTATE AMINO TRANSFERASE 32 U/L (15-37); BILIRUBIN,TOTAL 0.2 MG/DL (0.2-1.0); CKMB 1.9 NG/ML (0.0-3.6); CREATINE KINASE 104 U/L (26-308)
[2018-10-23 20:00] VITALS: BP 112/72
[2018-10-23 20:10] VITALS: BP 112/72
--- NOTE | 2018-10-24 12:44 | Diagnostic Imaging Report ---
Indication: Chest pain Comparison: 10/21/2018 A single view chest radiograph was obtained. Findings: Bulla demonstrated within the upper lobes. Lungs are hyperexpanded. Heart size is stable. There is a probable small hiatal hernia. IMPRESSION: No change from the previous exam.
== END 2018-10-23 20:10 | disposition other institution (70) ==
LOC: EDBD 17:02 → EMR 17:33 → CANBEDREQ 20:23
DX: I47.1 Supraventricular tachycardia (principal); R07.9 Chest pain, unspecified; F12.90 Cannabis use, unspecified, uncomplicated; E11.9 Type 2 diabetes mellitus without complications; J45.909 Unspecified asthma, uncomplicated
CPT/HCPCS: 36415; 71045; 80053; 80307; 82550; 82553; 83880; 84484; 85025; 93005; 96360; 99284

== ENCOUNTER 2018-11-08 12:11 | Inpatient (IN) | payer OTHER ==
[~2018-11-08] VITALS: Ht 172.7 cm; Wt 59.0 kg
[2018-11-08] MEDS ORDERED: Morphine Sulfate 4mg/ml Inj (IV USE ONLY) IVP ONE (12:30)
[2018-11-08] MEDS ORDERED: Insulin Human Regular 100units/ml 3ml IV ONE (13:15)
--- NOTE | 2018-11-08 13:25 | NUR ---
ED Nurse Note:pt. was BIBA from home with c/o chest pain blood and urine sent to labs, VSS, pain meds given IV fluids
[2018-11-08 13:35] VITALS: BP 109/67
[2018-11-08 13:39] LABS: BASOPHILS % (AUTO) 0.7 % (0.0-2.0); EOSINOPHILS % (AUTO) 1.9 % (0.0-3.0); HEMATOCRIT 44.1 % (42.0-52.0); HEMOGLOBIN 15.2 G/DL (14.2-18.0); LYMPHOCYTES % (AUTO) 22.2 % (20.0-45.0); MEAN CORPUSCULAR VOLUME 89 FL (80-99); MONOCYTES % (AUTO) 7.2 % (1.0-10.0); NEUTROPHILS % (AUTO) 67.9 % (45.0-75.0); PLATELET COUNT 203 K/UL (150-450); RED BLOOD COUNT 4.94 M/UL (4.70-6.10); WHITE BLOOD COUNT 9.4 K/UL (4.8-10.8)
[2018-11-08 13:50] LABS: ANION GAP 9 mmol/L (5-15); BLOOD UREA NITROGEN 13 mg/dL (7-18); CALCIUM 8.7 MG/DL (8.5-10.1); CARBON DIOXIDE 25 MMOL/L (21-32); CHLORIDE 101 MMOL/L (98-107); CREATININE 1.1 MG/DL (0.55-1.30); POTASSIUM 3.6 MMOL/L (3.5-5.1); SODIUM 135 MMOL/L (136-145)
[2018-11-08 13:53] LABS: ALANINE AMINOTRANSFERASE 73 U/L (12-78); ALBUMIN 3.2 G/DL (3.4-5.0); ALBUMIN/GLOBULIN RATIO 0.9 (1.0-2.7); ALKALINE PHOSPHATASE 138 U/L (46-116); ASPARTATE AMINO TRANSFERASE 25 U/L (15-37); BILIRUBIN,TOTAL 0.4 MG/DL (0.2-1.0)
--- NOTE | 2018-11-08 14:28 | Emergency Room Report ---
History of Present Illness General Chief Complaint: Chest Pain Source: Patient Present Illness HPI Patient is brought in by EMS for chest pain. Apparently he had an argument with his family and started having substernal chest pain. He is a insulin- dependent diabetic and has not been taking his insulin for a few days. He's been feeling weakness. He reports the chest pain is substernal radiating to his back. The pain is rated 4/10. He was treated by EMS in the field with aspirin. His blood pressure was low and they gave him a fluid bolus. No fevers, chills, palpitations, nausea, vomiting, diarrhea, dysuria, abdominal pain, shortness of breath, visual changes, headache. The patient was admitted on October 23 after an episode of supraventricular tachycardia. He signed out AGAINST MEDICAL ADVICE. Allergies: Coded Allergies: No Known Allergies (Unverified , 06/15/12) Patient History Past Medical History: see triage record, old chart reviewed Social History: Reports: drug use - THC; Denies: smoking, alcohol use Social History Narrative at home Reviewed Nursing Documentation: PMH: Agreed; PSxH: Agreed Nursing Documentation-PMH Hx Cardiac Problems: No Hx Hypertension: No Hx Asthma: Yes Hx Diabetes: Yes Physical Exam Vital Signs Date Time Temp Pulse Resp B/P (MAP) Pulse Ox O2 Delivery O2 Flow Rate FiO2 11/08/18 12:10 98.1 86 16 80/50 98 Room Air Sp02 EP Interpretation: reviewed, normal General Appearance: alert, GCS 15, mild distress, thin Head: normocephalic, atraumatic Eyes: bilateral eye normal inspection ENT: moist mucus membranes Neck: supple Respiratory: lungs clear, normal breath sounds Cardiovascular #1: regular rate, rhythm Cardiovascular #2: 2+ radial (R) Gastrointestinal: normal inspection, normal bowel sounds, non tender, no mass, non-distended, scaphoid Genitourinary: no CVA tenderness Musculoskeletal: back normal, normal range of motion Neurologic: alert, oriented x3, grossly normal Psychiatric: depressed affect Skin: normal inspection, warm/dry Medical Decision Making Diagnostic Impression: Primary Impression: Chest pain Qualified Codes: R07.9 - Chest pain, unspecified Additional Impressions: Hyperglycemia Right upper lobe consolidation Transient hypotension ER Course Patient presents with chest pain and hypotension with history of diabetes. Differential includes acute myocardial infarction, acute coronary syndrome, dehydration, sepsis, other occult infection, diabetic ketoacidosis amongst others. Patient will be evaluated with EKG, chest x-ray and labs. The patient will be treated with IV hydration. He received aspirin in the field. Nitrates are contraindicated due to the hypotension. He will be treated with Pepcid, Zofran and morphine. EKG without acute injury. Chest x-ray with right upper lobe consolidation. White count normal. Initial troponin negative. Glucose elevated. Glucose still elevated after bolus. Insulin given IV. Glucose better with fluids and insulin. Pain is improved. Urinalysis produced in the emergency department. Discussed with Dr. Valadez who accepted the patient for [facility]. No ambulance for [facility] transfer. Admit observation telemetry Dr. Bunch. Last Vital Signs Date Time Temp Pulse Resp B/P (MAP) Pulse Ox O2 Delivery O2 Flow Rate FiO2 11/08/18 21:00 Room Air 11/08/18 17:16 98.0 72 16 110/84 100 EKG Diagnostic Results Rate: normal Rhythm: NSR ST Segments: no acute changes Rhythm Strip Diag. Results EP Interpretation: yes Rhythm: NSR, no PVC's, no ectopy Chest X-Ray Diagnostic Results Chest X-Ray Diagnostic Results : Chest X-Ray Ordered: Yes # of Views/Limited/Complete: 1 View Indication: Other EP Interpretation: Yes Interpretation: no effusion, no pneumothorax, other - RUL process, COPD and scarring Impression: Other Electronically Signed by: Electronically signed by Linden Samuel MD Last Vital Signs Date Time Temp Pulse Resp B/P (MAP) Pulse Ox O2 Delivery O2 Flow Rate FiO2 11/08/18 21:00 Room Air 11/08/18 17:16 98.0 72 16 110/84 100 Status: improved Disposition: PLACE IN OBSERVATION Condition: Serious Referrals: NON PHYSICIAN (PCP) Linden Samuel MD Nov 08, 2018 14:28
--- NOTE | 2018-11-08 14:29 | Diagnostic Imaging Report ---
Indication: Chest pain Technique: One view of the chest Comparison: 10/21/2018, 10/23/2018 Findings: The patient is slightly rotated to the right. The lungs are hyperinflated. There is bilateral upper lobe bullous emphysema. Masslike opacity is seen in the right upper lobe, appearing new or at least more conspicuous than on the 2 earlier exams. The remainder of the lungs and pleural spaces are clear. The heart size is normal Impression: Right upper lobe opacity, new or increased from recent earlier studies. Mass or infiltrate not excluded. 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
[2018-11-08 15:10] VITALS: BP 110/84
[2018-11-08] MEDS: Mylanta II UD 30ml ORAL ONE ×2 (16:15→16:56)
[2018-11-08] MEDS ORDERED: ARTIFICIAL TEAR15 ML BOTH EYES (16:32)
[2018-11-08] MEDS ORDERED: B-121000 MCG PO (16:32)
[2018-11-08] MEDS ORDERED: ACETAMINOPHEN325 M1 ORAL (16:32)
[2018-11-08] MEDS ORDERED: ARTIFICIAL TEAR15 ML RIGHT EYE (16:32)
[2018-11-08] MEDS ORDERED: FAMOTIDINE20 MG ORAL (16:36)
[2018-11-08] MEDS ORDERED: CELEBREX100 MG ORAL (16:36)
[2018-11-08] MEDS ORDERED: DICYCLOMINE HCL10 MG PO (16:36)
[2018-11-08] MEDS ORDERED: FEXOFENADINE HC60 MG ORAL (16:36)
[2018-11-08] MEDS ORDERED: MULTIPLE VITAM1 EAC6 PO (16:36)
[2018-11-08] MEDS ORDERED: DOCUSIL100 M1 ORAL (16:36)
[2018-11-08] MEDS ORDERED: CARVEDILOL12.5 MG ORAL (16:36)
[2018-11-08] MEDS ORDERED: CARVEDILOL25 MG ORAL (16:36)
[2018-11-08] MEDS ORDERED: FLUTICASONE PRO16 G1 NASAL (16:36)
[2018-11-08] MEDS ORDERED: LEVOTHYROXINE175 MCG ORAL (16:39)
[2018-11-08] MEDS ORDERED: GAVISCON ES TA1 EACH PO (16:39)
[2018-11-08] MEDS ORDERED: FUROSEMIDE20 M1 ORAL (16:39)
[2018-11-08] MEDS ORDERED: ISOSORBIDE DINIT5 MG ORAL (16:39)
[2018-11-08] MEDS ORDERED: MAALOX ADVANCE770 ML PO (16:49)
[2018-11-08] MEDS ORDERED: CHILDREN'S LORAT5 MG PO (16:49)
[2018-11-08] MEDS ORDERED: LORAZEPAM0.5 MG ORAL (16:49)
[2018-11-08] MEDS ORDERED: LOMOTIL TABLET1 EACH ORAL (16:49)
[2018-11-08] MEDS ORDERED: LYRICA100 MG ORAL (16:49)
[2018-11-08] MEDS ORDERED: VITA PO (16:52)
[2018-11-08] MEDS ORDERED: POTASSIUM CHLO20 ME2 ORAL (16:52)
[2018-11-08] MEDS ORDERED: RESTORIL7.5 MG ORAL (16:52)
[2018-11-08] MEDS ORDERED: ROBITUSSIN COU237 M2 PO (16:52)
[2018-11-08] MEDS ORDERED: OMEGA PO (16:52)
[2018-11-08 17:15] VITALS: BP 105/80
[2018-11-08] MEDS ORDERED: VENTOLIN HFA18 GM INH (17:15)
[2018-11-08] MEDS ORDERED: traMADol 50mg tab ORAL PRN (17:30)
[2018-11-08] MEDS ORDERED: Albuterol 90mcg Inhaler 8gm INH PRN (18:00)
[2018-11-08] MEDS: metFORMIN 500mg tab ORAL SCH (18:35)
--- NOTE | 2018-11-08 19:30 | NUR ---
NURSE NOTES: received endorsement form morning nurse. pt in bed, no acute distress noted, pt denies chest pain at this time. safety precautions in place. will continue to monitor.
--- NOTE | 2018-11-08 19:30 | NUR ---
NURSE NOTES: Report given to IRMA Elliott. Plan of care endorsed.
[2018-11-08] MEDS: NovoLOG Insulin Flexpen SUBQ SCH (20:50)
[2018-11-08] MEDS: Heparin 5000 units/ml inj SUBQ SCH (20:52)
[2018-11-08 21:38] VITALS: BP 117/76
[2018-11-09] VITALS: BP 115/84
--- NOTE | 2018-11-09 | NUR ---
NURSE NOTES: pt in bed sleeping. no acute distress noted. will continue to monitor.
[2018-11-09] MEDS: NovoLOG Insulin Flexpen SUBQ SCH ×4 (05:59→21:48)
--- NOTE | 2018-11-09 06:43 | NUR ---
NURSE NOTES: pt reminds in stable condition. no change in condition. all needs met during my shift. will endorse pt to incoming nurse.
--- NOTE | 2018-11-09 07:15 | NUR ---
HAND-OFF: Report given to IRMA Garcia.
[2018-11-09 08:00] VITALS: BP 109/79
--- NOTE | 2018-11-09 08:00 | NUR ---
NURSE NOTES: Pt awake/alert in bed, breathing easily on room air, denies SOB and denies pain at this time. Vital signs stable with SR @ 84 on the monitor. IV access left and right forearm, both flushed with 10 ml NS and locked. Bed left in low position, side rails up x 2 and call light left near pt's hand.
[2018-11-09] MEDS: metFORMIN 500mg tab ORAL SCH ×2 (08:38→17:19)
[2018-11-09] MEDS: Heparin 5000 units/ml inj SUBQ SCH ×2 (08:38→21:00)
[2018-11-09] MEDS: Aspirin EC 81mg tab ORAL SCH (08:38)
--- NOTE | 2018-11-09 09:25 | Diagnostic Imaging Report ---
EXAM: CT Chest Without Intravenous Contrast CLINICAL HISTORY: MASS TECHNIQUE: Axial computed tomography images of the chest without intravenous contrast. CTDI is 15.27 mGy and DLP is 603 mGy-cm. One or more of the following dose reduction techniques were used: automated exposure control, adjustment of the mA and/or kV according to patient size, use of iterative reconstruction technique. Coronal and sagittal reformatted images were created and reviewed. COMPARISON: Chest x-ray dated 11/08/18 FINDINGS: Lungs: Approximately 2.8 x 2.1 x 1.9 cm pleural-parenchymal scarring and nodularity versus mass with coarse calcifications, located in the right lung apex (series 5 image 14, series 6 image 38). Scattered bilateral thin-walled pulmonary cysts versus bullae, most prominent in bilateral lung apices. Largest cyst measures 10.9 x 6.6 x 5.6 cm in the medial left upper lobe (series 5 image 31, series 6 image 21). Linear atelectasis in bilateral dependent lung bases. Pleural space: Unremarkable. No pneumothorax. No significant effusion. Heart: Small pericardial effusion with maximum thickness of 9 mm anteriorly (series 3 image 52). Bones/joints: Unremarkable. No acute fracture. No dislocation. Soft tissues: Unremarkable. Vasculature: Unremarkable. No thoracic aortic aneurysm. Lymph nodes: 6 mm calcified lymph node in the AP window region. IMPRESSION: 1. Approximately 2.8 x 2.1 x 1.9 cm pleural-parenchymal scarring and nodularity versus mass with coarse calcifications, located in the right lung apex (series 5 image 14, series 6 image 38). This is likely sequelae of prior granulomatous disease although cannot exclude underlying mass. 2. 6 mm calcified lymph node in the AP window region. 3. Scattered bilateral thin-walled pulmonary cysts versus bullae, most prominent in bilateral lung apices. Largest cyst measures 10.9 x 6.6 x 5. 6 cm in the medial left upper lobe (series 5 image 31, series 6 image 21). 4. Small pericardial effusion with maximum thickness of 9 mm anteriorly (series 3 image 52).
--- NOTE | 2018-11-09 11:30 | History and Physical Report ---
DATE OF ADMISSION: 11/08/2018 CHIEF COMPLAINT: Chest pain. HISTORY OF PRESENT ILLNESS: The patient is a 53-year-old male with a history of hypertension and diabetes, who presents with one month of progressive midsternal chest pain. The patient denies any fevers or chills. He has had no cough. On evaluation in the emergency room, the patient's EKG was unremarkable. Enzymes were negative. Chest x-ray showed a right-sided infiltrate. The patient is now admitted. PAST MEDICAL HISTORY: As above. PAST SURGICAL HISTORY: Includes a history of rods in the knees. CURRENT MEDICATIONS: Reconciled and reviewed. ALLERGIES: None. FAMILY HISTORY: None. SOCIAL HISTORY: The patient is a smoker. No alcohol. No drugs. REVIEW OF SYSTEMS: Unremarkable except for chest pain. PHYSICAL EXAMINATION: VITAL SIGNS: Temperature 98, pulse 84, respirations 18, and blood pressure 109/79. GENERAL: The patient is well developed, no apparent distress. HEART: Regular rate and rhythm. LUNGS: Clear. ABDOMEN: Soft, nontender, nondistended. EXTREMITIES: Without clubbing, cyanosis, or edema. LABORATORY DATA: White count 9, hemoglobin 15. Sodium 135, hemoglobin A1c was 12.2, magnesium was 1.6. ASSESSMENT: This is a pleasant male, admitted with complaints of chest pain, unclear etiology, possibly secondary to pneumonia, cannot rule out mass. PLAN: CT scan of the chest. We will consider antibiotics. Repeat troponin. Check an echo. Continue outpatient antihypertensive regimen. Song Bunch M.D. DR: VALARIE JOB#: [id number] CC:
[2018-11-09 12:00] VITALS: BP 127/90
--- NOTE | 2018-11-09 15:11 | NUR ---
CASE MANAGEMENT: REVIEW 53/M KIMMY PRESENTED TO ED FROM CC: CHEST PAIN SI: HYPERGLYCEMIA . RIGHT UPPER LOBE CONSOLIDATION T 98.3 HR 82 RR 16 BP 80/50 SAT 97% ROOM AIR NA 135 GLUCOSE 336 ALK PHOS 138 IS: NS IVF BOLUS X1 PEPCID IV X1 MORPHINE IV X1 ZOFRAN IV X1 NOVOLIN R IV X1 PATIENT ADMITTED TO TELEMETRY UNIT 11/08/2018 DCP: PATIENT IS FROM HOME
[2018-11-09 16:00] VITALS: BP 114/81
--- NOTE | 2018-11-09 19:32 | NUR ---
NURSE NOTES: Received report from IRMA Hess. Patient is asleep lying semi-cotto's; resting comfortably. Arousable to verbal and tactile stimuli. No signs of acute distress noted; denies pain at this time. AOx4; able to make needs known. Checked IV sites; patent and flushed. No erythema, bleeding, or infiltration noted. Bed at lowest position, brakes on, siderails up x2. Call light within reach. Will continue to monitor.
[2018-11-09 20:00] VITALS: BP 105/72
[2018-11-10] VITALS: BP 110/78
[2018-11-10 04:00] VITALS: BP 129/82
--- NOTE | 2018-11-10 04:25 | NUR ---
NURSE NOTES: Patient is asleep lying semi-cotto's; resting comfortably. No signs of acute distress or pain noted at this time.
[2018-11-10] MEDS: NovoLOG Insulin Flexpen SUBQ SCH ×4 (05:38→20:46)
--- NOTE | 2018-11-10 07:22 | NUR ---
HAND-OFF: Report given to IRMA Curiel. Patient is awake lying high cotto's eating breakfast. In stable condition.
--- NOTE | 2018-11-10 07:28 | NUR ---
NURSE NOTES: Received report from IRMA Doshi. Patient in bed resting, AOx4, no active s/s cardiac, respiratory distress noticed at this time. Patient on room air, SR with HR 72, denies pain at this time. IV on left FA 18G, right FA 20G, asymptomatic, patent, intact. Bed in lowest position, side rails upx3, call light within reach. Will continue to monitor.
[2018-11-10 08:00] VITALS: BP 147/82
[2018-11-10] MEDS: metFORMIN 500mg tab ORAL SCH ×2 (08:30→17:44)
[2018-11-10] MEDS: Aspirin EC 81mg tab ORAL SCH (08:31)
[2018-11-10] MEDS: Heparin 5000 units/ml inj SUBQ SCH ×2 (08:31→20:44)
[2018-11-10 12:00] VITALS: BP 141/95
--- NOTE | 2018-11-10 13:07 | General Progress Note ---
Assessment/Plan Problem List: (1) Chest pain ICD Codes: R07.9 - Chest pain, unspecified SNOMED: 04709178 Qualifiers: Qualified Codes: R07.9 - Chest pain, unspecified (2) Right upper lobe consolidation ICD Codes: J18.1 - Lobar pneumonia, unspecified organism SNOMED: [id number] Status: stable Assessment/Plan add glipizide monitor bs dc planning tomorrow Subjective ROS Limited/Unobtainable: Yes Constitutional: Reports: no symptoms HEENT: Reports: no symptoms Cardiovascular: Reports: chest pain Respiratory: Reports: no symptoms Gastrointestinal/Abdominal: Reports: no symptoms Genitourinary: Reports: no symptoms Neurologic/Psychiatric: Reports: no symptoms Endocrine: Reports: no symptoms Hematologic/Lymphatic: Reports: no symptoms Allergies: Coded Allergies: No Known Allergies (Unverified , 06/15/12) All Systems: reviewed and negative except above Subjective no events. w/o complaints. CT shows scar 2nd to old granulmatous sz. no cough, fevers, night sweats or wt loss Objective Last 24 Hour Vital Signs Date Time Temp Pulse Resp B/P (MAP) Pulse Ox O2 Delivery O2 Flow Rate FiO2 11/10/18 09:00 Room Air Room Air 11/10/18 08:37 80 18 Room Air 21 11/10/18 08:00 77 11/10/18 08:00 98.2 84 20 147/82 (103) 100 11/10/18 04:00 76 11/10/18 04:00 97.9 72 18 129/82 (98) 98 11/10/18 00:00 98.4 68 16 110/78 (89) 100 11/10/18 00:00 71 11/09/18 21:00 Room Air 11/09/18 20:00 98.9 71 18 105/72 (83) 97 11/09/18 20:00 80 11/09/18 19:40 83 16 Room Air 21 11/09/18 16:00 98.1 83 18 114/81 (92) 98 11/09/18 16:00 82 Intake and Output 11/09/18 11/10/18 18:59 06:59 Intake Total 1470 ml 200 ml Balance 1470 ml 200 ml Intake Oral 1470 ml 200 ml # Voids 7 2 Height (Feet): 5 Height (Inches): 8.00 Weight (Pounds): 130 General Appearance: WD/WN, alert Cardiovascular: normal rate Respiratory/Chest: lungs clear Abdomen: normal bowel sounds, non tender, soft, no organomegaly Edema: no edema noted Arm (L), no edema noted Arm (R), no edema noted Leg (L), no edema noted Leg (R), no edema noted Pedal (L), no edema noted Pedal (R), no edema noted Generalized Neurologic: tire wrapper II-XII grossly normal, alert, oriented x 3 Song Bunch MD Nov 10, 2018 13:07
[2018-11-10 16:00] VITALS: BP 121/78
--- NOTE | 2018-11-10 19:30 | NUR ---
HAND-OFF: Report given to IRMA Gardner.
--- NOTE | 2018-11-10 19:31 | NUR ---
NURSE NOTES: Got report from Veena SOLIS. Pt in stable condition. Denies any pain. No s/s of distress or discomfort noted. Pt resting in bed comfortably. Bed in low and locked position, call light within reach, bedside table within reach. Continue to monitor.
[2018-11-10 20:00] VITALS: BP 125/86
[2018-11-11] VITALS: BP 131/81
[2018-11-11 04:16] VITALS: BP 127/87
[2018-11-11] MEDS: GlipiZIDE 5mg tab ORAL SCH ×2 (06:11→06:14)
[2018-11-11] MEDS: NovoLOG Insulin Flexpen SUBQ SCH ×4 (06:16→20:48)
--- NOTE | 2018-11-11 06:59 | NUR ---
HAND-OFF: Report given to Veena SOLIS. Endorsed plan of care.
--- NOTE | 2018-11-11 07:00 | NUR ---
NURSE NOTES: Received report from IRMA Gardner. Patient in bed resting, no active s/s cardiac, respiratory distress noticed at this time, denies pain at this time. Patient on room air, AOx4, SR with HR 74. IV site on left FA 18G, right FA 20G, asymptomatic, patent, intact. Bed in lowest position, side rails upx3, call light within reach. Will continue to monitor.
--- NOTE | 2018-11-11 07:49 | NUR ---
CASE MANAGEMENT:REVIEW 11/10/18 SI: CHEST PAIN. PNEUMONIA 98.4 93 20 121/78 99% ON RA IS: ASA PO QD HEPARIN SQ Q12 GLIPIZIDE PO QAM SS INSULIN AC+HS METFORMIN PO BID : TELEMETRY 11/11/18 SI: CHEST PAIN. PNEUMONIA 97.5 74 18 127/87 98% ON RA IS: ASA PO QD HEPARIN SQ Q12 GLIPIZIDE PO QAM SS INSULIN AC+HS METFORMIN PO BID : TELEMETRY DCP; FROM HOME
[2018-11-11 08:00] VITALS: BP 116/81
[2018-11-11] MEDS ORDERED: LANTUS SOL100 UNIT/1 SUBQ (08:03)
[2018-11-11] MEDS: Heparin 5000 units/ml inj SUBQ SCH ×3 (09:00→21:00)
[2018-11-11] MEDS: metFORMIN 500mg tab ORAL SCH ×2 (09:07→17:25)
[2018-11-11] MEDS: Aspirin EC 81mg tab ORAL SCH (09:07)
[2018-11-11 12:00] VITALS: BP 105/76
--- NOTE | 2018-11-11 13:07 | NUR ---
HAND-OFF: Report given to IRMA Sparks.
--- NOTE | 2018-11-11 14:12 | NUR ---
*-* INSURANCE *-* ALL CLINICALS HAVE BEEN FAXED TO: ESTEBAN YANGM: SHAYLEE Bradley- [phone] FX: [phone].......REVIEW/CLINICAL
[2018-11-11 16:00] VITALS: BP 100/87
--- NOTE | 2018-11-11 19:30 | NUR ---
HAND-OFF: Report given to IRMA Child. Plan of care endorsed.
[2018-11-11 20:00] VITALS: BP 111/74
--- NOTE | 2018-11-11 20:03 | Cardiology Report ---
APPROVED REPORT EXAM: Two-dimensional and M-mode echocardiogram with Doppler and color Doppler. INDICATION Chest Pain M-Mode DIMENSIONS IVSd1.2 (0.7-1.1cm)Left Atrium (MM)2.9 (1.6-4.0cm) LVDd3.7 (3.5-5.6cm)Aortic Root3.8 (2.0-3.7cm) PWd1.4 (0.7-1.1cm)Aortic Cusp Exc.1.7 (1.5-2.0cm) LVDs2.7 (2.5-4.0cm) PWs1.6 cm All views obtained are subcostal views only. Normal left ventricular chamber size, systolic function and wall motion. Left ventricular ejection fraction estimated to be 55 %. No evidence of left ventricular hypertrophy. Anterior Echo-free space, may be due to pericardial fat or effusion. All other cardiac chamber sizes are within normal limits. Focal aortic valve sclerosis with adequate cusp excursion. Thickened mitral valve leaflets with normal excursion. Mitral annulus and aortic root calcification. Normal pulmonic valve structure. Normal tricuspid valve structure. IVC at normal size with physiologic collapse. A color flow and spectral Doppler study was performed and revealed: Trace mitral regurgitation. Mitral diastolic velocities suggest reduced left ventricular relaxation c/w mild LV diastolic dysfunction (Grade I). Trace to mild tricuspid regurgitation. Tricuspid systolic velocities suggests peak right ventricular systolic pressure of 25 mmHg.
[2018-11-12] VITALS: BP 112/75
[2018-11-12 04:00] VITALS: BP 120/88
[2018-11-12] MEDS: GlipiZIDE 5mg tab ORAL SCH (06:27)
[2018-11-12] MEDS: NovoLOG Insulin Flexpen SUBQ SCH (06:29)
--- NOTE | 2018-11-12 07:59 | NUR ---
NURSE NOTES: Received report from Marycarmen Child. Pt is laying in bed ready for DC. Bed is in lowest position, side rails up X2, and call light is within reach. Will continue to monitor.
[2018-11-12 08:00] VITALS: BP 112/81
[2018-11-12] MEDS: metFORMIN 500mg tab ORAL SCH (08:41)
[2018-11-12] MEDS: Aspirin EC 81mg tab ORAL SCH (08:41)
[2018-11-12] MEDS: Heparin 5000 units/ml inj SUBQ SCH (08:45)
--- NOTE | 2018-11-12 09:24 | NUR ---
NURSE NOTES: Patient discharged Home via Taxi. Taxi voucher given to patient. Belongings reviewed and accounted for. IV removed. Discharge instructions given to patient. Patient accompanied to lobby by RN. Patient stable upon discharge.
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
--- NOTE | 2018-11-12 12:53 | NUR ---
*-* INSURANCE *-* DISCHARGE SUMMARY FAXED TO: ESTEBAN ISAACS: SHAYLEE Bradley- [phone] FX: [phone].......REVIEW/CLINICAL
--- NOTE | 2018-11-12 18:36 | Cardiology Report ---
APPROVED REPORT EKG Measurement Heart [id number] [place] 160P77 [id number] Normal sinus rhythm Septal infarct, age undetermined Abnormal ECG
== END 2018-11-12 09:40 | disposition home or self-care (01) | DRG 139 ==
LOC: EDBD 12:11 → EMR 12:30 → EDBEDREQ 15:48 → 2E 16:02 → EDBEDREQ 16:12 → 2E 11-09 06:38 → OBSVTOIN 11-09 13:53
DX: J18.9 Pneumonia, unspecified organism (principal); E11.9 Type 2 diabetes mellitus without complications; F17.200 Nicotine dependence, unspecified, uncomplicated; I10 Essential (primary) hypertension; R07.9 Chest pain, unspecified
CPT/HCPCS: 36415; 71045; 71250; 80053; 80329; 82962; 83036; 83690; 83735; 84484; 85025; 93005; 93306; 94664; 96361; 96374; 96375; 99285; J1815; J2405

== ENCOUNTER 2019-02-14 19:46 | Emergency (ER) | payer OTHER ==
[~2019-02-14] VITALS: Ht 185.4 cm; Wt 64.4 kg
[~2019-02-14 19:46] MED LIST changes: +ACETAMINOPHEN325 M1 ORAL; +ARTIFICIAL TEAR15 ML BOTH EYES; +ARTIFICIAL TEAR15 ML RIGHT EYE; +B-121000 MCG PO; +CARVEDILOL12.5 MG ORAL; +CARVEDILOL25 MG ORAL; +CELEBREX100 MG ORAL; +CHILDREN'S LORAT5 MG PO; +DICYCLOMINE HCL10 MG PO; +DOCUSIL100 M1 ORAL; +FAMOTIDINE20 MG ORAL; +FEXOFENADINE HC60 MG ORAL; +FLUTICASONE PRO16 G1 NASAL; +FUROSEMIDE20 M1 ORAL; +GAVISCON ES TA1 EACH PO; +ISOSORBIDE DINIT5 MG ORAL; +LEVOTHYROXINE175 MCG ORAL; +LOMOTIL TABLET1 EACH ORAL; +LORAZEPAM0.5 MG ORAL; +LYRICA100 MG ORAL; +MAALOX ADVANCE770 ML PO; +MULTIPLE VITAM1 EAC6 PO; +OMEGA PO; +POTASSIUM CHLO20 ME2 ORAL; +RESTORIL7.5 MG ORAL; +ROBITUSSIN COU237 M2 PO; +VENTOLIN HFA18 GM INH; +VITA PO
[2019-02-14 19:50] VITALS: BP 108/75
[2019-02-14] MEDS ORDERED: Aspirin Baby 81mg ORAL ONE (20:00)
[2019-02-14] MEDS ORDERED: Albuterol ud Inhalation HHN ONE (20:00)
--- NOTE | 2019-02-14 20:00 | NUR ---
ED Nurse Note: PATIENT PRESENTS WITH COMPLAINTS OF ABDOMINAL PAIN AND LEFT SIDE TINGLING IN ARM.
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
--- NOTE | 2019-02-14 20:05 | NUR ---
ED Nurse Note: BLOOD LABS DRAWN FROM LINE STARTED IN FIELD PRIOR TO ARRIVAL. PATIENT DON E WITH 500ML NS BOLU.
--- NOTE | 2019-02-14 20:10 | NUR ---
ED Nurse Note: RADIOLOGY AT BEDSIDE FOR CXR.
--- NOTE | 2019-02-14 20:18 | NUR ---
ED Nurse Note: PATIENT CURRENTLY UNDERGOING BREATHING TREATMENT.
[2019-02-14 20:33] LABS: ANION GAP 8 mmol/L (5-15); BLOOD UREA NITROGEN 15 mg/dL (7-18); CALCIUM 8.4 MG/DL (8.5-10.1); CARBON DIOXIDE 24 MMOL/L (21-32); CHLORIDE 104 MMOL/L (98-107); CREATININE 0.9 MG/DL (0.55-1.30); POTASSIUM 3.7 MMOL/L (3.5-5.1); SODIUM 136 MMOL/L (136-145)
[2019-02-14 20:34] LABS: BASOPHILS % (AUTO) 1.2 % (0.0-2.0); EOSINOPHILS % (AUTO) 2.4 % (0.0-3.0); HEMATOCRIT 40.7 % (42.0-52.0); LYMPHOCYTES % (AUTO) 34.8 % (20.0-45.0); MEAN CORPUSCULAR VOLUME 91 FL (80-99); MONOCYTES % (AUTO) 6.5 % (1.0-10.0); PLATELET COUNT 223 K/UL (150-450); RED BLOOD COUNT 4.49 M/UL (4.70-6.10); WHITE BLOOD COUNT 9.1 K/UL (4.8-10.8)
[2019-02-14 20:48] LABS: ALANINE AMINOTRANSFERASE 77 U/L (12-78); ALBUMIN 3.1 G/DL (3.4-5.0); ALKALINE PHOSPHATASE 109 U/L (46-116); ASPARTATE AMINO TRANSFERASE 38 U/L (15-37); BILIRUBIN,TOTAL 0.3 MG/DL (0.2-1.0); CREATINE KINASE 70 U/L (26-308)
[2019-02-14 21:07] VITALS: BP 116/70
[2019-02-14] MEDS ORDERED: IBUPROFEN600 MG ORAL (22:07)
[2019-02-14] MEDS ORDERED: ALBUTEROL SULF8.5 GM INH (22:07)
[2019-02-14] MEDS ORDERED: NORCO 5-325 TA1 EACH ORAL (22:08)
[2019-02-14] MEDS ORDERED: Ketorolac 30mg Inj IV ONE (22:15)
[2019-02-14 22:18] VITALS: BP 116/70
--- NOTE | 2019-02-14 22:18 | NUR ---
ED Nurse Note: Patient cleared for discharge, patient verbalized understanding of discharge instructions. Patient ID band removed, IV removed. Patient A&Ox4, no s/s of acute distress. Patient ambulatory with steady of gait.
--- NOTE | 2019-02-15 10:56 | Diagnostic Imaging Report ---
Indication: Dyspnea Comparison: 11/08/2018 A single view chest radiograph was obtained. Findings: Emphysematous changes with hyperlucent regions and bulla in the upper lobes demonstrated. Heart size is normal. Bones are unremarkable. IMPRESSION: COPD/emphysema. No change
--- NOTE | 2019-02-16 13:05 | Cardiology Report ---
APPROVED REPORT EKG Measurement Heart [id number] [place] [id number] [id number] Sinus rhythm with occasional premature ventricular complexes Septal infarct, age undetermined Abnormal ECG
== END 2019-02-14 22:18 | disposition home or self-care (01) ==
LOC: EDBD 19:46 → EMR 21:52
DX: E86.0 Dehydration (principal); R07.9 Chest pain, unspecified; J44.9 Chronic obstructive pulmonary disease, unspecified; E11.8 Type 2 diabetes mellitus with unspecified complications; F17.210 Nicotine dependence, cigarettes, uncomplicated; R20.2 Paresthesia of skin; G62.9 Polyneuropathy, unspecified
CPT/HCPCS: 36415; 71045; 80053; 82550; 82553; 82962; 83690; 83880; 84484; 85025; 93005; 94640; 94664; 96374; 99284; J1885; J7040

== ENCOUNTER 2019-03-15 19:59 | Emergency (ER) | payer OTHER ==
[~2019-03-15] VITALS: Ht 175.3 cm; Wt 55.3 kg
[2019-03-15 20:15] VITALS: BP 124/88
--- NOTE | 2019-03-15 20:15 | NUR ---
ED Nurse Note: Patient was BIBA from home due to lower back pain. Stated to surtass analyst that has chronick back pain for 2 years. AAO x4, VSS at this time, skin is dry warm to touch.
[2019-03-15] MEDS ORDERED: HYDROcodone/Acetamin 5/325 tab ORAL ONE (20:30)
[2019-03-15] MEDS ORDERED: Methocarbamol 750mg tab ORAL ONE (20:30)
[2019-03-15] MEDS ORDERED: Ketorolac 30mg Inj IM ONE (20:30)
[2019-03-15 21:26] LABS: BASOPHILS % (AUTO) 0.7 % (0.0-2.0); EOSINOPHILS % (AUTO) 2.8 % (0.0-3.0); HEMATOCRIT 42.3 % (42.0-52.0); HEMOGLOBIN 15.1 G/DL (14.2-18.0); LYMPHOCYTES % (AUTO) 27.6 % (20.0-45.0); MEAN CORPUSCULAR VOLUME 88 FL (80-99); MONOCYTES % (AUTO) 6.2 % (1.0-10.0); NEUTROPHILS % (AUTO) 62.8 % (45.0-75.0); PLATELET COUNT 271 K/UL (150-450); RED CELL DISTRIBUTION WIDTH 10.6 % (11.6-14.8); WHITE BLOOD COUNT 8.8 K/UL (4.8-10.8)
[2019-03-15 21:41] LABS: ALANINE AMINOTRANSFERASE 50 U/L (12-78); ALBUMIN 3.5 G/DL (3.4-5.0); ALKALINE PHOSPHATASE 130 U/L (46-116); ANION GAP 7 mmol/L (5-15); ASPARTATE AMINO TRANSFERASE 24 U/L (15-37); BILIRUBIN,TOTAL 0.3 MG/DL (0.2-1.0); BLOOD UREA NITROGEN 19 mg/dL (7-18); CARBON DIOXIDE 26 MMOL/L (21-32); CHLORIDE 106 MMOL/L (98-107); SODIUM 139 MMOL/L (136-145)
--- NOTE | 2019-03-15 21:49 | Emergency Room Report ---
History of Present Illness General Chief Complaint: Back Pain-No Injury Source: Patient, EMS (Matteo Roberts MD) Present Illness HPI 53-year-old male presents ED for evaluation. Brought in by EMS from home complaining of back pain which started a few days ago. Denies falling or hurting himself. Pain is sharp, 8 out of 10, radiating from his upper back to his lower back. Denies chest pain or shortness of breath. Denies nausea or vomiting. Denies abdominal pain. Accu-Chek per triage is high. Patient does have history of diabetes. No other aggravating relieving factors. Denies any other associated symptoms (Matteo Roberts MD) Allergies: Coded Allergies: No Known Allergies (Unverified , 06/15/12) Patient History Past Medical History: DM, asthma Past Surgical History: none Pertinent Family History: none Social History: Denies: smoking, alcohol use, drug use Reviewed Nursing Documentation: PMH: Agreed; PSxH: Agreed (Matteo Roberts MD) Nursing Documentation-PMH Hx Cardiac Problems: No Hx Hypertension: No Hx Asthma: Yes Hx Diabetes: Yes Hx Cancer: No Hx Gastrointestinal Problems: No Hx Cerebrovascular Accident: Yes (Matteo Roberts MD) Review of Systems All Other Systems: negative except mentioned in HPI (Matteo Roberts MD) Physical Exam Vital Signs Date Time Temp Pulse Resp B/P (MAP) Pulse Ox O2 Delivery O2 Flow Rate FiO2 03/15/19 20:02 97.9 88 16 124/88 (100) 98 Room Air Sp02 EP Interpretation: reviewed, normal General Appearance: alert, GCS 15, non-toxic, mild distress, thin Head: normocephalic, atraumatic Eyes: bilateral eye normal inspection, bilateral eye PERRL ENT: hearing grossly normal, normal pharynx, no angioedema, normal voice Neck: full range of motion, supple/symm/no masses Respiratory: chest non-tender, lungs clear, normal breath sounds, speaking full sentences Cardiovascular #1: regular rate, rhythm, no edema Cardiovascular #2: 2+ carotid (R), 2+ carotid (L), 2+ radial (R), 2+ radial (L) , 2+ dorsalis pedis (R), 2+ dorsalis pedis (L) Gastrointestinal: normal bowel sounds, non tender, soft, non-distended, no guarding, no rebound Rectal: deferred Genitourinary: normal inspection, no CVA tenderness Musculoskeletal: gait/station normal, normal range of motion, tender - paraspinal thoracic and lumbar tenderness Neurologic: alert, oriented x3, responsive, motor strength/tone normal, sensory intact, speech normal Psychiatric: judgement/insight normal, memory normal, mood/affect normal, no suicidal/homicidal ideation Reflexes: 3+ bicep (R), 3+ bicep (L), 3+ tricep (R), 3+ tricep (L), 3+ knee (R) , 3+ knee (L) Lymphatic: no adenopathy (Matteo Roberts MD) Medical Decision Making Diagnostic Impression: Primary Impression: Hyperglycemia Additional Impressions: UTI (urinary tract infection) Qualified Codes: N30.00 - Acute cystitis without hematuria Low back pain ER Course Please see above note. Patient blood sugars improved. Urine analysis reveals pyuria. Rocephin given IV. Patient improved with treatment. Patient stable for outpatient observation and treatment. Laboratory Tests Test 03/15/19 20:55 03/15/19 23:22 White Blood Count 8.8 K/UL (4.8-10.8) Red Blood Count 4.80 M/UL (4.70-6.10) Hemoglobin 15.1 G/DL (14.2-18.0) Hematocrit 42.3 % (42.0-52.0) Mean Corpuscular Volume 88 FL (80-99) Mean Corpuscular Hemoglobin 31.6 PG (27.0-31.0) H Mean Corpuscular Hemoglobin Concent 35.8 G/DL (32.0-36.0) Red Cell Distribution Width 10.6 % (11.6-14.8) L Platelet Count 271 K/UL (150-450) Mean Platelet Volume 6.3 FL (6.5-10.1) L Neutrophils (%) (Auto) 62.8 % (45.0-75.0) Lymphocytes (%) (Auto) 27.6 % (20.0-45.0) Monocytes (%) (Auto) 6.2 % (1.0-10.0) Eosinophils (%) (Auto) 2.8 % (0.0-3.0) Basophils (%) (Auto) 0.7 % (0.0-2.0) Sodium Level 139 MMOL/L (136-145) Potassium Level 4.0 MMOL/L (3.5-5.1) Chloride Level 106 MMOL/L (98-107) Carbon Dioxide Level 26 MMOL/L (21-32) Anion Gap 7 mmol/L (5-15) Blood Urea Nitrogen 19 mg/dL (7-18) H Creatinine 1.0 MG/DL (0.55-1.30) Estimate Glomerular Filtration Rate > 60 mL/min (>60) Glucose Level 502 MG/DL (74-106) *H Calcium Level 9.0 MG/DL (8.5-10.1) Magnesium Level 1.6 MG/DL (1.8-2.4) L Total Bilirubin 0.3 MG/DL (0.2-1.0) Aspartate Amino Transferase (AST) 24 U/L (15-37) Alanine Aminotransferase (ALT) 50 U/L (12-78) Alkaline Phosphatase 130 U/L (46-116) H Total Protein 6.9 G/DL (6.4-8.2) Albumin 3.5 G/DL (3.4-5.0) Globulin 3.4 g/dL Albumin/Globulin Ratio 1.0 (1.0-2.7) Acetone Level Negative (NEGATIVE) Urine Color Pale yellow Urine Appearance Clear Urine pH 5 (4.5-8.0) Urine Specific [place] 1.015 (1.005-1.035) Urine Protein Negative (NEGATIVE) Urine Glucose (UA) 4+ (NEGATIVE) H Urine Ketones 2+ (NEGATIVE) H Urine Blood Negative (NEGATIVE) Urine Nitrite Negative (NEGATIVE) Urine Bilirubin Negative (NEGATIVE) Urine Urobilinogen Normal MG/DL (0.0-1.0) Urine Leukocyte Esterase 1+ (NEGATIVE) H Urine RBC 2-4 /HPF (0 - 0) H Urine WBC 5-10 /HPF (0 - 0) H Urine Squamous Epithelial Cells Occasional /LPF Urine Bacteria Occasional /HPF (NONE) (Linden Samuel MD) Last Vital Signs Date Time Temp Pulse Resp B/P (MAP) Pulse Ox O2 Delivery O2 Flow Rate FiO2 03/15/19 20:54 97.8 03/15/19 20:15 16 124/88 98 Room Air 03/15/19 20:02 88 (Matteo Roberts MD) Status: improved (Linden Samuel MD) Disposition: HOME, SELF-CARE Condition: Improved Scripts Acetaminophen (Tylenol) 325 Mg Tablet 650 MG ORAL Q6H PRN for Prn Pain/Headache/Temp > 101, #20 TAB 0 Refills Prov: Linden Samuel MD 03/16/19 Nitrofurantoin Monohyd/M-Cryst* (MACROBID 100 MG*) 100 Mg Capsule 100 MG ORAL EVERY 12 HOURS, #14 CAP Prov: Linden Samuel MD 03/16/19 Ibuprofen* (MOTRIN*) 600 Mg Tablet 600 MG ORAL Q8H PRN for For Pain, #20 TAB 0 Refills Prov: Linden Samuel MD 03/16/19 Tramadol Hcl* (ULTRAM*) 50 Mg Tablet 50 MG ORAL Q6H PRN for For Pain, #8 TAB 0 Refills Prov: Linden Samuel MD 03/16/19 Matteo Roberts MD Mar 15, 2019 21:49 Linden Samuel MD Mar 16, 2019 01:34
[2019-03-15] MEDS ORDERED: Insulin Human Regular 100units/ml 3ml IV ONE (22:00)
[2019-03-15 23:28] LABS: APPEARANCE,URINE CLEAR; BILIRUBIN, URINE NEGATIVE (NEGATIVE); COLOR,URINE PALE YELLOW; GLUCOSE, URINE (UA) 4+ (NEGATIVE); KETONES,URINE 2+ (NEGATIVE); LEUKOCYTE ESTERASE ,URINE 1+ (NEGATIVE); NITRITE,URINE NEGATIVE (NEGATIVE); PH,URINE 5 (4.5-8.0); PROTEIN,URINE NEGATIVE (NEGATIVE); UROBILINOGEN,URINE NORMAL MG/DL (0.0-1.0)
[2019-03-16] MEDS ORDERED: cefTRIAXone 1 GM in NS 55 ML IVPB ONE (00:15)
[2019-03-16] MEDS ORDERED: IBUPROFEN600 MG ORAL (01:45)
[2019-03-16] MEDS ORDERED: TRAMADOL HCL50 MG ORAL (01:45)
[2019-03-16] MEDS ORDERED: TYLENOL325 MG ORAL (01:45)
[2019-03-16] MEDS ORDERED: NITROFURANTOIN100 M2 ORAL (01:45)
[2019-03-16] MEDS ORDERED: Ketorolac 30mg Inj IV ONE (02:00)
[2019-03-16 02:25] VITALS: BP 124/88
--- NOTE | 2019-03-16 02:25 | NUR ---
ER DISCHARGE NOTE: Patient is cleared to be discharged per ERMD, pt is aox4, on room air, with stable vital signs. pt was given dc and prescription instructions, pt was able to verbalize understanding, pt id band and iv site removed without complications. pt is able to ambulate with steady gait. pt took all belongings.
== END 2019-03-16 02:25 | disposition home or self-care (01) ==
LOC: EDUNIT# 19:59 → EDBD 19:59 → EMR 20:22
DX: N30.00 Acute cystitis without hematuria (principal); M54.5 Low back pain; E11.65 Type 2 diabetes mellitus with hyperglycemia
CPT/HCPCS: 36415; 80053; 81003; 82009; 82962; 83735; 85025; 96361; 96365; 96372; 96375; 96376; 99284; J0696; J1815; J1885

== ENCOUNTER 2019-03-22 22:09 | Emergency (ER) | payer OTHER ==
[~2019-03-22] VITALS: Ht 185.4 cm; Wt 81.6 kg
[~2019-03-22 22:09] MED LIST changes: +NITROFURANTOIN100 M2 ORAL; +TYLENOL325 MG ORAL
[2019-03-22 22:15] VITALS: BP 120/110
--- NOTE | 2019-03-22 22:18 | NUR ---
ER Nurse Note: Pt BIBA 27 from home c/o palpatations for 1 hr with no chest pain. Pt stated he was was relaxing at home when pt felt HR increasing. Pt stated acute onset and first occurance. BP on route 99/60. IV establsihed by EMS. EKG completed, ERMD at pt side. Will contiue to monitor.
[2019-03-22] MEDS ORDERED: Amiodarone 150mg/3ml Amp IVP ONE ×2 (22:30→22:45)
[2019-03-22] MEDS ORDERED: LORazepam Inj 2mg/ml 1ml IV ONE (22:30)
[2019-03-22 22:36] LABS: BASOPHILS % (AUTO) 0.9 % (0.0-2.0); EOSINOPHILS % (AUTO) 3.3 % (0.0-3.0); HEMATOCRIT 45.1 % (42.0-52.0); HEMOGLOBIN 15.4 G/DL (14.2-18.0); LYMPHOCYTES % (AUTO) 41.8 % (20.0-45.0); MEAN CORPUSCULAR VOLUME 92 FL (80-99); MONOCYTES % (AUTO) 7.3 % (1.0-10.0); NEUTROPHILS % (AUTO) 46.7 % (45.0-75.0); PLATELET COUNT 236 K/UL (150-450); RED BLOOD COUNT 4.92 M/UL (4.70-6.10); RED CELL DISTRIBUTION WIDTH 11.3 % (11.6-14.8); WHITE BLOOD COUNT 10.4 K/UL (4.8-10.8)
--- NOTE | 2019-03-22 22:38 | NUR ---
ER Nurse Note: Amiodarone given; monitoring HR, HR at 120. ERMD aware. Second dose ordered. Will continue to monitor.
[2019-03-22 22:40] LABS: INR 1.1 (0.9-1.1)
[2019-03-22 22:46] VITALS: BP 91/75
--- NOTE | 2019-03-22 22:50 | NUR ---
ER Nurse Note: Second dose administered; HR 105. EKG showen to ERMD. Pt calm, relaxed. Will continue to montior
[2019-03-22 22:52] LABS: ANION GAP 8 mmol/L (5-15); BLOOD UREA NITROGEN 13 mg/dL (7-18); CALCIUM 8.5 MG/DL (8.5-10.1); CARBON DIOXIDE 25 MMOL/L (21-32); CHLORIDE 108 MMOL/L (98-107); POTASSIUM 3.4 MMOL/L (3.5-5.1); SODIUM 141 MMOL/L (136-145)
[2019-03-22] MEDS ORDERED: dilTIAZem HCl 25mg/5ml Inj IVP ONE (23:00)
[2019-03-22 23:02] LABS: ALANINE AMINOTRANSFERASE 39 U/L (12-78); ALBUMIN 3.2 G/DL (3.4-5.0); ALBUMIN/GLOBULIN RATIO 0.9 (1.0-2.7); ALKALINE PHOSPHATASE 119 U/L (46-116); ASPARTATE AMINO TRANSFERASE 26 U/L (15-37); BILIRUBIN,TOTAL 0.3 MG/DL (0.2-1.0); CREATINE KINASE 101 U/L (26-308)
--- NOTE | 2019-03-22 23:07 | Diagnostic Imaging Report ---
EXAM: XR Chest, 1 View CLINICAL HISTORY: CP TECHNIQUE: Frontal view of the chest. COMPARISON: Chest radiograph on 02/14/2019 FINDINGS: Hardware: None. Lungs/pleura: Mild bibasilar atelectasis. Probable similar small right pleural effusion. Stable scarring and emphysematous changes. Heart/mediastinum: Normal. No cardiomegaly. Soft tissues: Unremarkable. Bones: No acute fracture. Mild right convex curvature of the thoracic spine. Upper abdomen: Normal. IMPRESSION: Mild bibasilar atelectasis. Probable similar small right pleural effusion. Stable scarring and emphysematous changes.
[2019-03-22 23:10] VITALS: BP 98/72
--- NOTE | 2019-03-22 23:31 | Emergency Room Report ---
History of Present Illness General Chief Complaint: Palpitations Source: Patient, EMS Present Illness HPI Patient presents with palpitations. It began 1 hour prior to EMS arriving. He denies significant chest pain at this time. Paramedics found atrial fibrillation with rapid rate on the twelve-lead. No treatment was given. In September the patient was treated for SVT in the failed with adenosine 6 and 12 mg. He converted with this. The prehospital EKG at that time was clearly SVT and not atrial fibrillation. He signed out AMA at that time. Patient denies any dizziness but feels his heart is beating quite fast. No fevers, chills, sore throat, chest pain, nausea, vomiting, diarrhea, dysuria , abdominal pain, shortness of breath, joint pain, rashes, depression, anxiety, visual changes, headache. History of diabetes with poor compliance. He was last seen March 15. His glucose was improved and he was able to be discharged. He took his metformin in the morning and insulin. He ate lunch. The patient denies alcohol ingestion or drugs. In the past only + for THC. He was admitted October with these D/C diagnoses: 1. Chest pain. 2. Diabetes. 3. Weight loss. Allergies: Coded Allergies: No Known Allergies (Unverified , 06/15/12) Patient History Past Medical History: see triage record, old chart reviewed Social History: Reports: smoking, drug use - THC; Denies: alcohol use Social History Narrative lives with his sister Reviewed Nursing Documentation: PMH: Agreed; PSxH: Agreed Nursing Documentation-PM Past Medical History: No History, Except For Hx Cardiac Problems: No Hx Hypertension: Yes Hx Asthma: Yes Hx Diabetes: Yes Hx Cancer: No Hx Gastrointestinal Problems: No Hx Cerebrovascular Accident: Yes Review of Systems All Other Systems: negative except mentioned in HPI Physical Exam Vital Signs Date Time Temp Pulse Resp B/P (MAP) Pulse Ox O2 Delivery O2 Flow Rate FiO2 03/22/19 22:05 94.8 140 18 93/59 (70) 100 Room Air Sp02 EP Interpretation: reviewed, normal General Appearance: alert, GCS 15, mild distress, thin Head: normocephalic Eyes: bilateral eye normal inspection, bilateral eye PERRL, bilateral eye EOMI ENT: moist mucus membranes - poor dentition Neck: supple Respiratory: decreased breath sounds, other - barrel chest Cardiovascular #1: no edema, tachycardia, irregularly irregular Cardiovascular #2: 2+ radial (R) Gastrointestinal: normal inspection, non tender, no mass, non-distended, decreased bowel sounds, scaphoid Genitourinary: no CVA tenderness Musculoskeletal: back normal, normal range of motion, no calf tenderness, Daniel 's Sign negative Neurologic: alert, oriented x3, motor strength/tone normal, DTRs symmetric, sensory intact, cerebellar normal, speech normal Psychiatric: depressed affect Skin: no rash, other - slightly dishevelled Procedures Critical Care Time Critical Care Time Total Critical Care Time: 90 min bedside evaluation and treatment excludes procedures (EKG, procedural sedation, cardioversion). Reason for critical care: Rapid atrial fibrillation, evaluation of risk factors for cardioversion, treatment with anti-arithmetic medication and reevaluation. Possible complications: hypotension, hypertension, RI, shock, arrhythmias, metabolic acidosis, end organ damage, respiratory failure, cardiac arrest. Interventions: Amiodarone, diltiazem, repeat evaluations, review of old records , magnesium, potassium and cardioversion Course: The patient presented with rapid atrial fibrillation of acute onset. Amiodarone was prescribed and repeated as rate was improved but the patient remained in atrial fibrillation. Diltiazem was given IV. After each administration the patient was reevaluated and EKGs were performed. Prior echocardiogram was evaluated. Replacement of magnesium and potassium. Discussion of risks and benefit of cardioversion with patient. See procedural sedation and cardioversion notes. Patient converted to normal sinus rhythm. Initially made non-transferable until cardioversion completed. Discussion with accepting physician. Consultations: nursing staff, EMS, respiratory therapy, admitting physician Performed by: Dr. Samuel Tolerated well condition = serious Cardioversion Cardioversion: Consent: Verbal Indication: AFIB Type: Synchonis Response: Sinus Attempts: One Patient Tolerated: Well Complications: None Progress Risks and benefits explained to patient. After administration of Versed 2 mg patient was cardioverted with synchronized delivery of 75J. Resultant rhythm was normal sinus rhythm. Patient tolerated the procedure well although seem to have some memory of the procedure. Procedural Sedation Consent: Verbal Pre-Sedation Assessment: Plan for Sedation Discuss Airway Assessment (Malampati): I Heart: abnormal Lungs: normal Abdomen: normal Extremities: normal Procedures/Plans: Cardioversion Plan for Moderate Sedation: Other - Versed ASA Score: II Procedure Narrative Patient was given 2 mg of Versed IV. The patient was seen cardioverted at 75J. He did have some sensation but tolerated the procedure well. He converted to sinus rhythm. Start Time: 02:40 End Time: 03:40 Communication: No Apparent Limitation Mental Status: Awake Respiration: Unlabored Skin Condition: WNL Abdomen: WNL Nausea: NO Vomiting: NO Medical Decision Making Diagnostic Impression: Primary Impression: New onset atrial fibrillation Additional Impressions: Hyperglycemia COPD (chronic obstructive pulmonary disease) Qualified Codes: J44.9 - Chronic obstructive pulmonary disease, unspecified Hypomagnesemia Hypokalemia ER Course He presents with rapid atrial fibrillation of new onset for less than hours. Differential includes acute myocardial infarction, no onset atrial fibrillation , electrolyte imbalance, PE amongst others. The rate is rapid and needs to be controlled however as a short duration we should focus on rhythm conversion. Patient is evaluated with EKG, chest x-ray and labs. The patient will be treated with IV hydration and we will begin with amiodarone. Amiodarone 2 doses not convert but slowed rate. Diltiazem, slow but still a fib. EKG with no STEMI. Chest x-ray COPD with bulla. Labs with low potassium and magnesium. Elevated blood glucose. Some risk with COPD and DM but benefits also discussed with patient for cardioversion. Time out. Procedural sedation with Versed. Sync cardioversion 75 joules. Convert to SR. 0:30. Although sleepy fully awake and oriented at 0: 34. As the patient is in normal sinus rhythm he is now stable for transfer. Discussed with Dr. Foley and accepted at [facility]. Aspirin given. Transferred ALS to [facility]. Laboratory Tests Test 03/22/19 22:00 03/22/19 22:20 03/22/19 23:20 03/22/19 23:30 Prothrombin Time 11.4 SEC (9.30-11.50) Prothrombin Time INR 1.1 (0.9-1.1) PTT 26 SEC (23-33) Magnesium Level 1.7 MG/DL (1.8-2.4) L White Blood Count 10.4 K/UL (4.8-10.8) Red Blood Count 4.92 M/UL (4.70-6.10) Hemoglobin 15.4 G/DL (14.2-18.0) Hematocrit 45.1 % (42.0-52.0) Mean Corpuscular Volume 92 FL (80-99) Mean Corpuscular Hemoglobin 31.4 PG (27.0-31.0) H Mean Corpuscular Hemoglobin Concent 34.2 G/DL (32.0-36.0) Red Cell Distribution Width 11.3 % (11.6-14.8) L Platelet Count 236 K/UL (150-450) Mean Platelet Volume 7.3 FL (6.5-10.1) Neutrophils (%) (Auto) 46.7 % (45.0-75.0) Lymphocytes (%) (Auto) 41.8 % (20.0-45.0) Monocytes (%) (Auto) 7.3 % (1.0-10.0) Eosinophils (%) (Auto) 3.3 % (0.0-3.0) H Basophils (%) (Auto) 0.9 % (0.0-2.0) Sodium Level 141 MMOL/L (136-145) Potassium Level 3.4 MMOL/L (3.5-5.1) L Chloride Level 108 MMOL/L (98-107) H Carbon Dioxide Level 25 MMOL/L (21-32) Anion Gap 8 mmol/L (5-15) Blood Urea Nitrogen 13 mg/dL (7-18) Creatinine 1.0 MG/DL (0.55-1.30) Estimate Glomerular Filtration Rate > 60 mL/min (>60) Glucose Level 229 MG/DL (74-106) H Calcium Level 8.5 MG/DL (8.5-10.1) Total Bilirubin 0.3 MG/DL (0.2-1.0) Aspartate Amino Transferase (AST) 26 U/L (15-37) Alanine Aminotransferase (ALT) 39 U/L (12-78) Alkaline Phosphatase 119 U/L (46-116) H Total Creatine Kinase 101 U/L (26-308) Troponin I 0.000 ng/mL (0.000-0.056) Pro-B-Type Natriuretic Peptide 133 pg/mL (0-125) H Total Protein 6.6 G/DL (6.4-8.2) Albumin 3.2 G/DL (3.4-5.0) L Globulin 3.4 g/dL Albumin/Globulin Ratio 0.9 (1.0-2.7) L Urine Opiates Screen Negative (NEGATIVE) Urine Barbiturates Screen Negative (NEGATIVE) Phencyclidine (PCP) Screen Negative (NEGATIVE) Urine Amphetamines Screen Negative (NEGATIVE) Urine Benzodiazepines Screen Negative (NEGATIVE) Urine Cocaine Screen Negative (NEGATIVE) Urine Marijuana (THC) Screen Positive (NEGATIVE) H Urine Color Yellow Urine Appearance Clear Urine pH 6 (4.5-8.0) Urine Specific [place] 1.020 (1.005-1.035) Urine Protein 2+ (NEGATIVE) H Urine Glucose (UA) 4+ (NEGATIVE) H Urine Ketones 1+ (NEGATIVE) H Urine Blood 1+ (NEGATIVE) H Urine Nitrite Negative (NEGATIVE) Urine Bilirubin Negative (NEGATIVE) Urine Urobilinogen 1 MG/DL (0.0-1.0) H Urine Leukocyte Esterase 1+ (NEGATIVE) H Urine RBC 5-10 /HPF (0 - 0) H Urine WBC 2-4 /HPF (0 - 0) Urine Squamous Epithelial Cells Few /LPF (NONE/OCC) Urine Bacteria Occasional /HPF (NONE) Urine Mucus Few /LPF (NONE/OCC) H EKG Diagnostic Results Rate: tachycardiac Rhythm: other - Rapid atrial fibrillation ST Segments: other - Slight strain ASA given to the pt in ED: Yes Rhythm Strip Diag. Results EP Interpretation: yes Rhythm: no PVC's, no ectopy, other - Rapid atrial fibrillation Chest X-Ray Diagnostic Results Chest X-Ray Diagnostic Results : Chest X-Ray Ordered: Yes # of Views/Limited/Complete: 1 View Indication: Other EP Interpretation: Yes Interpretation: no consolidation, no effusion, no pneumothorax, other - Bulla and COPD Impression: Other Electronically Signed by: Electronically signed by Linden Samuel MD Last Vital Signs Date Time Temp Pulse Resp B/P (MAP) Pulse Ox O2 Delivery O2 Flow Rate FiO2 03/23/19 03:15 98.3 65 17 120/80 100 Room Air Status: improved Disposition: XFER SHT-TRM HOSP Condition: Serious Referrals: NON PHYSICIAN (PCP) Linden Samuel MD Mar 22, 2019 23:31
--- NOTE | 2019-03-22 23:41 | NUR ---
ER Nurse Note: All orders completed per ERMD orders. Pt resting, asleeping, no signs of distress. HR 98; BP 102/88. Pt pending admission. All safety measures met; will continue to [facility].
--- NOTE | 2019-03-22 23:59 | NUR ---
ER Nurse Note: Talked to Zoila, heel caser at [facility] about pt information. Pt signed consent for cardioversion if necessary. Pt asleep but arousable. ERMD explaining all risks of the procedure.
[2019-03-23 00:06] LABS: APPEARANCE,URINE CLEAR; BILIRUBIN, URINE NEGATIVE (NEGATIVE); COLOR,URINE YELLOW; GLUCOSE, URINE (UA) 4+ (NEGATIVE); KETONES,URINE 1+ (NEGATIVE); LEUKOCYTE ESTERASE ,URINE 1+ (NEGATIVE); NITRITE,URINE NEGATIVE (NEGATIVE); PH,URINE 6 (4.5-8.0); PROTEIN,URINE 2+ (NEGATIVE); UROBILINOGEN,URINE 1 MG/DL (0.0-1.0)
[2019-03-23] MEDS ORDERED: Midazolam 2mg/2ml Inj IVP ONE ×2 (00:15)
[2019-03-23 00:22] VITALS: BP 92/69
--- NOTE | 2019-03-23 00:39 | NUR ---
ER Nurse Note: Cardioversion- 0022 - VS; BP 92/69, HR 104, RR 21, 100% O2 RA, CO2 32. 0024 - Time out conducted by Dr. Mckeon. Arcelia, RN; Rosalina, RN; Chaparrita, RN; Isabelle, RN; Rene, RT; Davon, monogram technician; Howard, monogram technician present. 0027 - Versed 2mg IV administered by 0028 - Shock at 75 joules administered 0029 - VS; BP 105/69, HR 78, RR 13, 99% O2 RA, CO2 30 EKG = NSR 0034 - VS; BP 103/80, HR 78, RR 19, 99% O2 RA, CO2 30 0035 - Time out
--- NOTE | 2019-03-23 00:50 | NUR ---
ER Nurse Note: Pt a&ox4, VSS, HR 78 at NSR. Pt asleep but easily arousable; radial pulses strong bilateral. Post cardioversion obtained; ERMD seen. Second vial of Versed 2mg not open and returned. Pending admission. All safety measuresed met; will continue to [facility].
[2019-03-23 00:52] VITALS: BP 97/69
[2019-03-23 01:04] VITALS: BP 92/69
[2019-03-23 01:17] VITALS: BP 101/79
--- NOTE | 2019-03-23 02:24 | NUR ---
ER Nurse Note: Called report twice; was told the bed is switched to 239A. Nurse talking report cannot take report; will call third time per request. Pt stable, VSS, asleep, no signs of distress. Pt denies pain, S1 and S2 heard. All safety measures met; will continue to [facility].
[2019-03-23 02:35] VITALS: BP 122/87
[2019-03-23 03:15] VITALS: BP 120/80
--- NOTE | 2019-03-23 03:15 | NUR ---
ER Nurse Note: Gave report to IRMA Lucas in [facility] for continuity of care. Pt a&o4, VSS, RA, no signs of distress, stable for transfer. Pt left with all belongings.
--- NOTE | 2019-03-23 12:38 | Cardiology Report ---
APPROVED REPORT EKG Measurement Heart [id number] Atrial fibrillation with rapid ventricular response Abnormal ECG
--- NOTE | 2019-03-23 12:38 | Cardiology Report ---
APPROVED REPORT EKG Measurement Heart [id number] Normal sinus rhythm Normal ECG
== END 2019-03-23 03:15 | disposition short-term general hospital (02) ==
LOC: EDBD 22:09 → EMR 23:13
DX: I48.91 Unspecified atrial fibrillation (principal); E11.65 Type 2 diabetes mellitus with hyperglycemia; J44.9 Chronic obstructive pulmonary disease, unspecified; E83.42 Hypomagnesemia; E87.6 Hypokalemia; I10 Essential (primary) hypertension; F17.200 Nicotine dependence, unspecified, uncomplicated; F12.10 Cannabis abuse, uncomplicated
CPT/HCPCS: 36415; 71045; 80053; 80307; 81003; 82550; 83735; 83880; 84484; 85025; 85610; 85730; 93005; 96361; 96365; 96375; 99291; 99292; J0282; J2250; J3480

== ENCOUNTER 2019-04-12 17:30 | Emergency (ER) | payer OTHER ==
[~2019-04-12] VITALS: Ht 185.4 cm; Wt 64.4 kg
[2019-04-12] MEDS ORDERED: Ketorolac 30mg Inj IM ONE (17:45)
--- NOTE | 2019-04-12 18:00 | NUR ---
ED Nurse Note:pt. was BIBA from home with c/o chronic neck pain exacerbation, pt. is A/Ox4 , hx of A-fib and DM, blood sugar is critical high on arrival, MD is notifies and pt. was moved to monitor bed and report given to Kelsey
[2019-04-12 18:02] LABS: BASOPHILS % (AUTO) 0.6 % (0.0-2.0); EOSINOPHILS % (AUTO) 1.2 % (0.0-3.0); HEMATOCRIT 42.4 % (42.0-52.0); HEMOGLOBIN 14.5 G/DL (14.2-18.0); LYMPHOCYTES % (AUTO) 21.6 % (20.0-45.0); MEAN CORPUSCULAR VOLUME 90 FL (80-99); MONOCYTES % (AUTO) 6.7 % (1.0-10.0); NEUTROPHILS % (AUTO) 69.9 % (45.0-75.0); PLATELET COUNT 300 K/UL (150-450); RED BLOOD COUNT 4.71 M/UL (4.70-6.10); RED CELL DISTRIBUTION WIDTH 10.8 % (11.6-14.8); WHITE BLOOD COUNT 12.3 K/UL (4.8-10.8)
--- NOTE | 2019-04-12 18:05 | NUR ---
ED Nurse Note: called Lab and reminded about the added lab works.
[2019-04-12 18:06] VITALS: BP 143/91
--- NOTE | 2019-04-12 18:06 | NUR ---
ED Nurse Note: patient taken to xray
--- NOTE | 2019-04-12 18:07 | NUR ---
ED Nurse Note: patient did not go down to xray per Dr. Samuel. patient back on the monitor and bolus
--- NOTE | 2019-04-12 18:29 | NUR ---
ED Nurse Note: pt reminded of urine sample. ERMD made aware that pt is not able to provide urine at this moment. will wait.
--- NOTE | 2019-04-12 18:30 | Emergency Room Report ---
History of Present Illness General Chief Complaint: Neck Pain Source: Patient, EMS (Litzy Macias) Present Illness HPI 54-year-old male with history of hyperglycemia not controlled and atrial fibrillation here with worsening neck pain x3 days. Patient reports that he had neck injury and broken disks in 2013 however denies any recent injury or fall. Denies chest pain, shortness of breath, palpitation, abdominal pain nausea vomiting. Patient was recently seen at [facility] end of February 2019 and was transferred to a different hospital due to hyperglycemia and atrial fibrillation. Patient is in mild distress. Glucose is critically high above 500. Patient is rating his pain 10 out of 10 without radiation denies tingling and numbness at this time. (Litzy Macias) Allergies: Coded Allergies: No Known Allergies (Unverified , 06/15/12) Patient History Past Medical History: see triage record Past Surgical History: unable to obtain Pertinent Family History: none Immunizations: UTD Reviewed Nursing Documentation: PMH: Agreed; PSxH: Agreed (Litzy Macias) Nursing Documentation-PMH Hx Cardiac Problems: No Hx Hypertension: No Hx Asthma: Yes Hx Diabetes: Yes Hx Cancer: No Hx Gastrointestinal Problems: No Hx Cerebrovascular Accident: Yes (Litzy Macias) Review of Systems All Other Systems: negative except mentioned in HPI (Litzy Macias) Physical Exam Vital Signs Date Time Temp Pulse Resp B/P (MAP) Pulse Ox O2 Delivery O2 Flow Rate FiO2 04/12/19 17:26 98.2 92 16 120/81 (94) 95 Sp02 EP Interpretation: reviewed, normal General Appearance: alert, GCS 15, non-toxic, mild distress Head: normocephalic, atraumatic Eyes: bilateral eye normal inspection, bilateral eye PERRL ENT: hearing grossly normal, normal pharynx, no angioedema, normal voice Neck: full range of motion, supple, thyroid normal, no meningismus, supple/symm /no masses Respiratory: chest non-tender, lungs clear, normal breath sounds, no wheezing, speaking full sentences Cardiovascular #1: regular rate, rhythm, no edema, no murmur, normal capillary refill Cardiovascular #2: 2+ carotid (R), 2+ carotid (L) Gastrointestinal: normal bowel sounds, non tender, soft, non-distended, no guarding, no rebound Rectal: deferred Genitourinary: normal inspection, no CVA tenderness Musculoskeletal: back normal, gait/station normal, normal range of motion, non- tender, no calf tenderness Neurologic: alert, oriented x3, responsive, motor strength/tone normal, sensory intact, speech normal Psychiatric: judgement/insight normal, memory normal, mood/affect normal, no suicidal/homicidal ideation Skin: no rash Lymphatic: no adenopathy (Litzy Macias) Medical Decision Making PA Attestation All diagnoses and treatment plans were reviewed and discussed with my supervising physician Dr. Samuel (Litzy Macias) Diagnostic Impression: Primary Impression: Hyperglycemia Additional Impressions: Chronic neck pain Tenuous home situation Marasmus COPD (chronic obstructive pulmonary disease) Qualified Codes: J43.1 - Panlobular emphysema Compression fracture of C7 vertebra Qualified Codes: S12.690D - Other displaced fracture of seventh cervical vertebra, subsequent encounter for fracture with routine healing ER Course 54-year-old male with history of hyperglycemia not controlled and atrial fibrillation here with worsening neck pain x3 days. Patient reports that he had neck injury and broken disks in 2013 however denies any recent injury or fall. Denies chest pain, shortness of breath, palpitation, abdominal pain nausea vomiting. Patient was recently seen at [facility] end of February 2019 and was transferred to a different hospital due to hyperglycemia and atrial fibrillation. Patient is in mild distress. Glucose is critically high above 500. Patient is rating his pain 10 out of 10 without radiation denies tingling and numbness at this time. Ddx considered but are not limited to: Hyperglycemia, DKA, cervical spine strain versus sprain versus fracture versus chronic neck pain, hyperkalemia Vital signs: are WNL, pt. is afebrile H&PE are most consistent with: Hyperglycemia ORDERS: CBC, CMP, UA, troponin, coagulations, C-spine, chest x-ray, EKG ED INTERVENTIONS: NS bolus, Toradol Patient was admited with diagnosis of hyperglycemia to Dr. Peguero under supervision of : Lizzie pt stable at time of admission (Litzy Macias) ER Course Please see above note. Patient examined by me. Discussion with PA regarding treatment plan and close review of labs and orders. No evidence of DKA. Based on history and exam C7 fracture not new. Presented to Dr. Izaguirre who accepts the patient . Patient refusing to go to other hospital. Also refuse accucheck. Angry not able to eat. Discussed need for accucheck if signing out AMA. Agreed and given food. Accucheck 201. Near tears about social situation at home. Sister supposed to give insulin. Will need Social Service Consult for home safety at other hospital. Laboratory Tests Test 04/12/19 17:50 04/12/19 20:00 White Blood Count 12.3 K/UL (4.8-10.8) H Red Blood Count 4.71 M/UL (4.70-6.10) Hemoglobin 14.5 G/DL (14.2-18.0) Hematocrit 42.4 % (42.0-52.0) Mean Corpuscular Volume 90 FL (80-99) Mean Corpuscular Hemoglobin 30.8 PG (27.0-31.0) Mean Corpuscular Hemoglobin Concent 34.2 G/DL (32.0-36.0) Red Cell Distribution Width 10.8 % (11.6-14.8) L Platelet Count 300 K/UL (150-450) Mean Platelet Volume 6.2 FL (6.5-10.1) L Neutrophils (%) (Auto) 69.9 % (45.0-75.0) Lymphocytes (%) (Auto) 21.6 % (20.0-45.0) Monocytes (%) (Auto) 6.7 % (1.0-10.0) Eosinophils (%) (Auto) 1.2 % (0.0-3.0) Basophils (%) (Auto) 0.6 % (0.0-2.0) Prothrombin Time 10.7 SEC (9.30-11.50) Prothrombin Time INR 1.0 (0.9-1.1) PTT 27 SEC (23-33) Sodium Level 134 MMOL/L (136-145) L Potassium Level 4.6 MMOL/L (3.5-5.1) Chloride Level 100 MMOL/L (98-107) Carbon Dioxide Level 24 MMOL/L (21-32) Anion Gap 10 mmol/L (5-15) Blood Urea Nitrogen 16 mg/dL (7-18) Creatinine 1.1 MG/DL (0.55-1.30) Estimate Glomerular Filtration Rate > 60 mL/min (>60) Glucose Level 635 MG/DL (74-106) *H Calcium Level 8.9 MG/DL (8.5-10.1) Magnesium Level 1.7 MG/DL (1.8-2.4) L Total Bilirubin 0.4 MG/DL (0.2-1.0) Aspartate Amino Transferase (AST) 5 U/L (15-37) L Alanine Aminotransferase (ALT) 27 U/L (12-78) Alkaline Phosphatase 157 U/L (46-116) H Troponin I 0.000 ng/mL (0.000-0.056) Pro-B-Type Natriuretic Peptide 117 pg/mL (0-125) Total Protein 7.1 G/DL (6.4-8.2) Albumin 3.2 G/DL (3.4-5.0) L Globulin 3.9 g/dL Albumin/Globulin Ratio 0.8 (1.0-2.7) L Urine Color Pale yellow Urine Appearance Clear Urine pH 5 (4.5-8.0) Urine Specific [place] 1.010 (1.005-1.035) Urine Protein 1+ (NEGATIVE) H Urine Glucose (UA) 4+ (NEGATIVE) H Urine Ketones 3+ (NEGATIVE) H Urine Blood Negative (NEGATIVE) Urine Nitrite Negative (NEGATIVE) Urine Bilirubin Negative (NEGATIVE) Urine Urobilinogen Normal MG/DL (0.0-1.0) Urine Leukocyte Esterase Negative (NEGATIVE) Urine RBC 0 /HPF (0 - 0) Urine WBC 0 /HPF (0 - 0) Urine Squamous Epithelial Cells None /LPF (NONE/OCC) Urine Bacteria Occasional /HPF (NONE) Urine Opiates Screen Negative (NEGATIVE) Urine Barbiturates Screen Negative (NEGATIVE) Phencyclidine (PCP) Screen Negative (NEGATIVE) Urine Amphetamines Screen Negative (NEGATIVE) Urine Benzodiazepines Screen Negative (NEGATIVE) Urine Cocaine Screen Negative (NEGATIVE) Urine Marijuana (THC) Screen Positive (NEGATIVE) H (Linden Samuel MD) EKG Diagnostic Results Rate: normal Rhythm: NSR ST Segments: no acute changes Other Impression peaked T waves V3 (Litzy Macias) Rhythm Strip Diag. Results EP Interpretation: yes Rhythm: NSR, no PVC's, no ectopy (Linden Samuel MD) Chest X-Ray Diagnostic Results Chest X-Ray Diagnostic Results : Chest X-Ray Ordered: Yes # of Views/Limited/Complete: 1 View Indication: Other EP Interpretation: Yes PA Xray: Interpretation reviewed, by supervising MD, and agrees with findings. Interpretation: no consolidation, no effusion, no pneumothorax Impression: No acute disease Electronically Signed by: Litzy BELLE Scribe Text FINDINGS: Lungs: Right upper lobe density likely atelectasis/scarring. Cannot exclude superimposed infiltrates or underlying pulmonary lesion. Emphysematous lung changes. Pleural space: Unremarkable. No pneumothorax. Heart: Unremarkable. No cardiomegaly. Mediastinum: Unremarkable. Bones/joints: Unremarkable. IMPRESSION: Right upper lobe density likely atelectasis/scarring. Cannot exclude superimposed infiltrates or underlying pulmonary lesion (Litzy Macias) Chest X-Ray Diagnostic Results : Electronically Signed by: P A documentation of Xray reviewed by me and is accurate, Linden Samuel MD (Linden Samuel MD) Other X-Ray Diagnostic Results Other X-Ray Diagnostic Results : X-Ray ordered: C-spine # of Views/Limited Vs Complete: 3 View Indication: Pain EP Interpretation: Yes PA Xray: Interpretation reviewed, by supervising MD, and agrees with findings. Interpretation: no dislocation, no soft tissue swelling, no fractures Impression: No acute disease Electronically Signed by: Litzy BELLE Scribe Text FINDINGS: Vertebrae: C7 chronic compression, cannot exclude [id number] fracture. No acute subluxation. Disc spaces: Multilevel degenerative changes. Soft tissues: Unremarkable. IMPRESSION: C7 chronic compression, cannot exclude [id number] fracture. (Litzy Macias) Other X-Ray Diagnostic Results : Electronically Signed by: P A documentation of Xray reviewed by me and is accurate, Linden Samuel MD (Linden Samuel MD) Last Vital Signs Date Time Temp Pulse Resp B/P (MAP) Pulse Ox O2 Delivery O2 Flow Rate FiO2 04/12/19 18:06 98.2 74 19 143/91 98 (Litzy Macias) Last Vital Signs Date Time Temp Pulse Resp B/P (MAP) Pulse Ox O2 Delivery O2 Flow Rate FiO2 04/13/19 00:18 98.8 75 18 142/90 98 Status: improved (Linden Samuel MD) Disposition: XFER SHT-TRM HOSP Condition: Serious Litzy Macias Apr 12, 2019 18:30 Linden Samuel MD Apr 12, 2019 19:31
[2019-04-12 18:38] LABS: ALANINE AMINOTRANSFERASE 27 U/L (12-78); ALBUMIN 3.2 G/DL (3.4-5.0); ALBUMIN/GLOBULIN RATIO 0.8 (1.0-2.7); ALKALINE PHOSPHATASE 157 U/L (46-116); ANION GAP 10 mmol/L (5-15); ASPARTATE AMINO TRANSFERASE 5 U/L (15-37); BILIRUBIN,TOTAL 0.4 MG/DL (0.2-1.0); BLOOD UREA NITROGEN 16 mg/dL (7-18); CALCIUM 8.9 MG/DL (8.5-10.1); CARBON DIOXIDE 24 MMOL/L (21-32); CHLORIDE 100 MMOL/L (98-107); CREATININE 1.1 MG/DL (0.55-1.30); POTASSIUM 4.6 MMOL/L (3.5-5.1); SODIUM 134 MMOL/L (136-145)
--- NOTE | 2019-04-12 18:43 | NUR ---
ED Nurse Note: blood glucose level notified to Dr. Samuel.
[2019-04-12 19:00] VITALS: BP 140/82
[2019-04-12] MEDS ORDERED: Insulin Human Regular 100units/ml 3ml IV ONE (19:00)
--- NOTE | 2019-04-12 19:08 | NUR ---
HAND-OFF: Report given to Codie Aceves RN. patient is stable in bed ,vss, endorsed all plan of care to Codie SOLIS.
--- NOTE | 2019-04-12 19:19 | Diagnostic Imaging Report ---
EXAM: XR Chest, 1 View CLINICAL HISTORY: PAIN TECHNIQUE: Frontal view of the chest. COMPARISON: 03 22 2019. FINDINGS: Lungs: Right upper lobe density likely atelectasis scarring. Cannot exclude superimposed infiltrates or underlying pulmonary lesion. Emphysematous lung changes. Pleural space: Unremarkable. No pneumothorax. Heart: Unremarkable. No cardiomegaly. Mediastinum: Unremarkable. Bones joints: Unremarkable. IMPRESSION: Right upper lobe density likely atelectasis scarring. Cannot exclude superimposed infiltrates or underlying pulmonary lesion.
--- NOTE | 2019-04-12 19:55 | NUR ---
ED Nurse Note: Pt down to CT Addendum: 04/12/19 at 1956 by KDEARING down to xray
--- NOTE | 2019-04-12 20:05 | NUR ---
ED Nurse Note: Pt back from xray
[2019-04-12 20:13] LABS: APPEARANCE,URINE CLEAR; BILIRUBIN, URINE NEGATIVE (NEGATIVE); COLOR,URINE PALE YELLOW; GLUCOSE, URINE (UA) 4+ (NEGATIVE); LEUKOCYTE ESTERASE ,URINE NEGATIVE (NEGATIVE); NITRITE,URINE NEGATIVE (NEGATIVE); PH,URINE 5 (4.5-8.0); UROBILINOGEN,URINE NORMAL MG/DL (0.0-1.0)
[2019-04-12 20:16] LABS: KETONES,URINE 3+ (NEGATIVE); PROTEIN,URINE 1+ (NEGATIVE)
--- NOTE | 2019-04-12 20:48 | Diagnostic Imaging Report ---
EXAM: XR Cervical Spine, 2 or 3 Views CLINICAL HISTORY: PAIN TECHNIQUE: Frontal and lateral views of the cervical spine. COMPARISON: No relevant prior studies available. FINDINGS: Vertebrae: C7 chronic compression, cannot exclude [id number] fracture. No acute subluxation. Disc spaces: Multilevel degenerative changes. Soft tissues: Unremarkable. IMPRESSION: C7 chronic compression, cannot exclude [id number]-[id number] fracture.
[2019-04-12] MEDS ORDERED: NovoLOG Insulin Flexpen SUBQ SCH (21:00)
--- NOTE | 2019-04-12 21:56 | NUR ---
ED Nurse Note: Pt resting in bed, IV fluids infusing, no signs of distress. No further orders at this time, will continue to monitor
[2019-04-12 21:58] VITALS: BP 134/80
--- NOTE | 2019-04-13 00:01 | NUR ---
Spoke with Braxton at [facility]-states another 10 min.(should have been here [id number])
[2019-04-13 00:18] VITALS: BP 142/90
--- NOTE | 2019-04-13 00:18 | NUR ---
ED Nurse Note: pt resting in bed with eyes closed, non-labored breathing. Wating for [facility]
--- NOTE | 2019-04-13 00:33 | NUR ---
ER DISCHARGE NOTE: Patient is cleared to be discharged per ERMD, pt is aox4, on room air, with stable vital signs. pt was given dc and prescription instructions, pt was able to verbalize understanding, pt id band removed. pt taken by [facility] to [place] comm. pt took all belongings.
--- NOTE | 2019-04-14 11:16 | Cardiology Report ---
APPROVED REPORT EKG Measurement Heart [id number] Normal sinus rhythm Possible septal infarct, age undetermined Borderline ECG
== END 2019-04-13 00:30 | disposition short-term general hospital (02) ==
LOC: EDBD 17:30 → EMR 18:41
DX: M54.2 Cervicalgia (principal); G89.29 Other chronic pain; J44.9 Chronic obstructive pulmonary disease, unspecified; J43.1 Panlobular emphysema; S12.690D Other displaced fracture of seventh cervical vertebra, subsequent encounter for fracture with routine healing; E11.65 Type 2 diabetes mellitus with hyperglycemia; Z86.73 Personal history of transient ischemic attack (TIA), and cerebral infarction without residual deficits; E41 Nutritional marasmus; Z68.1 Body mass index [BMI] 19.9 or less, adult
CPT/HCPCS: 36415; 71045; 72040; 80053; 80307; 81001; 83735; 83880; 84484; 85025; 85610; 85730; 93005; 96361; 96372; 96374; J1815; J1885; Z7502; 99285

== ENCOUNTER 2019-06-14 13:01 | Emergency (ER) | payer OTHER ==
[~2019-06-14] VITALS: Ht 182.9 cm; Wt 67.1 kg
[2019-06-14 13:05] VITALS: BP 129/91
--- NOTE | 2019-06-14 13:05 | NUR ---
ED Nurse Note: Patient arrived to ED by ambulance from home. Patient states he was walking outside to smoke a cigarette and started to feel chest pain and weakness. Per EMS, patient was hypotensive and hyperglycemic en route. EMS gave 1 L NS. Pain currently mild in center of chest, 5/10, does not radiate. Patient AXO x 4, skin intact. Blood and urine sent to lab. 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
--- NOTE | 2019-06-14 13:14 | Emergency Room Report ---
History of Present Illness General Chief Complaint: Chest Pain Source: Patient, Medical Record (Claudette Dykes DO) Present Illness HPI Patient presents with complaints of palpitation and what appears to be SVT on the paramedics run sheet Patient reports that he was watching the football game when he started feeling palpitations sensation walked outside to smoke a cigarette and the palpitation worsened And paramedics were summoned At this time feels significantly improved denies any chest pain or shortness of breath patient denies having this sensation in the past he also does have insulin-dependent diabetes and his glucose Is reported to be over 500 patient was not aware of this abnormality (Claudette Dykes DO) Allergies: Coded Allergies: No Known Allergies (Unverified , 06/15/12) Patient History Past Medical History: see triage record Reviewed Nursing Documentation: PMH: Agreed; PSxH: Agreed (Claudette Dykes DO) Nursing Documentation-PMH Hx Cardiac Problems: No Hx Hypertension: No Hx Asthma: Yes Hx Diabetes: Yes Hx Cancer: No Hx Gastrointestinal Problems: No Hx Cerebrovascular Accident: Yes (Claudette Dykes DO) Review of Systems All Other Systems: negative except mentioned in HPI (Claudette Dykes DO) Physical Exam Vital Signs Date Time Temp Pulse Resp B/P (MAP) Pulse Ox O2 Delivery O2 Flow Rate FiO2 06/14/19 12:54 98.1 79 18 127/95 (106) 100 Room Air Sp02 EP Interpretation: reviewed, normal General Appearance: well appearing, no apparent distress Head: normocephalic, atraumatic Eyes: bilateral eye PERRL, bilateral eye EOMI ENT: hearing grossly normal, normal pharynx, TMs + canals normal, uvula midline Neck: full range of motion, supple, no meningismus, no bony tend Respiratory: lungs clear, normal breath sounds, no rhonchi, no respiratory distress, no retraction, no accessory muscle use Cardiovascular #1: normal peripheral pulses, regular rate, rhythm, no edema, no gallop, no JVD, no murmur Gastrointestinal: normal bowel sounds, non tender, soft, no mass, no organomegaly, non-distended, no guarding, no hernia, no pulsatile mass, no rebound Genitourinary: no CVA tenderness Musculoskeletal: normal inspection Neurologic: oriented x3, responsive, 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, motor strength/ tone normal, sensory intact Psychiatric: mood/affect normal Skin: no rash Lymphatic: normal inspection, no adenopathy (Claudette Dykes DO) Procedures Critical Care Time Critical Care Time 50 minutes for multiple re-evaluations patient with critical findings concerning for life-threatening process not including any procedural time (Claudette Dykes DO) Medical Decision Making Diagnostic Impression: Primary Impression: SVT (supraventricular tachycardia) Additional Impressions: Elevated troponin Hyperglycemia Left against medical advice ER Course Patient is a fairly complex patient with multiple differential to consideration including but not limited to cardiac cardiopulmonary and vascular emergencies Patient appears to have converted to a normal sinus rhythm after adenosine injection Extensive work-up was initiated patient's x-ray shows similar findings to previous no acute change Troponin level has shown evidence of increase likely troponin leak from the SVT patient remains chest pain-free at this time Nevertheless the glucose level is also significantly elevated and patient will require further inpatient care Labs Test 06/14/19 12:05 06/14/19 13:15 White Blood Count 7.7 K/UL (4.8-10.8) Red Blood Count 4.88 M/UL (4.70-6.10) Hemoglobin 14.8 G/DL (14.2-18.0) Hematocrit 44.8 % (42.0-52.0) Mean Corpuscular Volume 92 FL (80-99) Mean Corpuscular Hemoglobin 30.3 PG (27.0-31.0) Mean Corpuscular Hemoglobin Concent 33.0 G/DL (32.0-36.0) Red Cell Distribution Width 12.1 % (11.6-14.8) Platelet Count 203 K/UL (150-450) Mean Platelet Volume 7.5 FL (6.5-10.1) Neutrophils (%) (Auto) 60.4 % (45.0-75.0) Lymphocytes (%) (Auto) 30.2 % (20.0-45.0) Monocytes (%) (Auto) 6.7 % (1.0-10.0) Eosinophils (%) (Auto) 1.8 % (0.0-3.0) Basophils (%) (Auto) 0.9 % (0.0-2.0) Sodium Level 131 MMOL/L (136-145) Potassium Level 4.5 MMOL/L (3.5-5.1) Chloride Level 100 MMOL/L (98-107) Carbon Dioxide Level 27 MMOL/L (21-32) Anion Gap 4 mmol/L (5-15) Blood Urea Nitrogen 12 mg/dL (7-18) Creatinine 1.1 MG/DL (0.55-1.30) Estimat Glomerular Filtration Rate > 60 mL/min (>60) Glucose Level 614 MG/DL (74-106) Calcium Level 7.7 MG/DL (8.5-10.1) Total Bilirubin 0.4 MG/DL (0.2-1.0) Aspartate Amino Transf (AST/SGOT) 67 U/L (15-37) Alanine Aminotransferase (ALT/SGPT) 73 U/L (12-78) Alkaline Phosphatase 122 U/L (46-116) Troponin I 0.163 ng/mL (0.000-0.056) Total Protein 6.3 G/DL (6.4-8.2) Albumin 3.0 G/DL (3.4-5.0) Globulin 3.3 g/dL Albumin/Globulin Ratio 0.9 (1.0-2.7) Lipase 20 U/L (73-393) Thyroid Stimulating Hormone (TSH) 0.670 uiU/mL (0.358-3.740) Free Thyroxine 1.26 NG/DL (0.76-1.46) Urine Color Pale yellow Urine Appearance Clear Urine pH 5 (4.5-8.0) Urine Specific [place] 1.010 (1.005-1.035) Urine Protein 2+ (NEGATIVE) Urine Glucose (UA) 4+ (NEGATIVE) Urine Ketones 2+ (NEGATIVE) Urine Blood Negative (NEGATIVE) Urine Nitrite Negative (NEGATIVE) Urine Bilirubin Negative (NEGATIVE) Urine Urobilinogen Normal MG/DL (0.0-1.0) Urine Leukocyte Esterase Negative (NEGATIVE) Urine RBC 0 /HPF (0 - 0) Urine WBC 0-2 /HPF (0 - 0) Urine Squamous Epithelial Cells Occasional /LPF Urine Bacteria Occasional /HPF (NONE) Urine Opiates Screen Negative (NEGATIVE) Urine Barbiturates Screen Negative (NEGATIVE) Phencyclidine (PCP) Screen Negative (NEGATIVE) Urine Amphetamines Screen Negative (NEGATIVE) Urine Benzodiazepines Screen Negative (NEGATIVE) Urine Cocaine Screen Negative (NEGATIVE) Urine Marijuana (THC) Screen Positive (NEGATIVE) (Claudette Dykes DO) EKG Diagnostic Results Rate: normal Rhythm: NSR ST Segments: no acute changes (Claudette Dykes DO) Rhythm Strip Diag. Results EP Interpretation: yes Rate: 60 Rhythm: NSR, no PVC's, no ectopy (Claudette Dykes DO) Chest X-Ray Diagnostic Results Chest X-Ray Diagnostic Results : Chest X-Ray Ordered: Yes # of Views/Limited/Complete: 1 View Indication: Chest Pain EP Interpretation: Yes Interpretation: no consolidation, no effusion, no pneumothorax, other - Scarring and chronic changes Impression: No acute disease Electronically Signed by: Claudette Dykes DO (Claudette Dykes DO) Last Vital Signs Date Time Temp Pulse Resp B/P (MAP) Pulse Ox O2 Delivery O2 Flow Rate FiO2 06/14/19 12:54 98.1 79 18 127/95 (106) 100 Room Air Status: improved (Claudette Dykes DO) Reevaluation Time: 15:21 Reevaluation Impression Assumed care of the patient at approximately [address] Dykes. Briefly, this is a 53-year-old male who presented with palpitations found to be in SVT that was converted with adenosine prior to arrival by EMS. He has elevated blood sugar readings but is not in DKA. Small trope leak but nonischemic EKG. Will be transferred to [facility] for further management and evaluation. He was given Lovenox. He is chest pain-free and stable for transfer. 1541: Notified by nursing staff that the patient is refusing transfer or admission of any kind to hospital. He states he is hyperglycemic because he did not take his medications today and that he is in SVT as he has been in before. He does not want transfer to another hospital as he states that they will not do anything for him. I repeatedly tried to explain that he requires cardiac evaluation and possible medications or possible procedures such as ablation to determine the cause of his SVT and to prevent abnormal heart rhythms in the future. Also discussed that he is blood sugar is uncontrolled and needs to be closely monitored and corrected. Patient acknowledges that he has a potentially life-threatening condition but does not want any further testing or interventions in a hospital setting at this time. He has full decision-making capacity. He understands the risks of leaving AGAINST MEDICAL ADVICE including . He is electing to leave and refusing further care at this time. Strongly encourage the patient to return to the emergency department if he changes his mind or with any new or worsening symptoms. (Elliott Davalos MD) Disposition: AGAINST MEDICAL ADVICE Condition: Serious Claudette Dykes DO Jun 14, 2019 13:14 Elliott Davalos MD Jun 14, 2019 15:11
[2019-06-14] MEDS ORDERED: Insulin Human Regular 100units/ml 3ml IV ONE (13:15)
[2019-06-14 13:31] LABS: BASOPHILS % (AUTO) 0.9 % (0.0-2.0); EOSINOPHILS % (AUTO) 1.8 % (0.0-3.0); HEMATOCRIT 44.8 % (42.0-52.0); HEMOGLOBIN 14.8 G/DL (14.2-18.0); LYMPHOCYTES % (AUTO) 30.2 % (20.0-45.0); MEAN CORPUSCULAR VOLUME 92 FL (80-99); MONOCYTES % (AUTO) 6.7 % (1.0-10.0); NEUTROPHILS % (AUTO) 60.4 % (45.0-75.0); PLATELET COUNT 203 K/UL (150-450); RED BLOOD COUNT 4.88 M/UL (4.70-6.10); RED CELL DISTRIBUTION WIDTH 12.1 % (11.6-14.8); WHITE BLOOD COUNT 7.7 K/UL (4.8-10.8)
[2019-06-14 13:33] LABS: APPEARANCE,URINE CLEAR; BILIRUBIN, URINE NEGATIVE (NEGATIVE); COLOR,URINE PALE YELLOW; GLUCOSE, URINE (UA) 4+ (NEGATIVE); KETONES,URINE 2+ (NEGATIVE); LEUKOCYTE ESTERASE ,URINE NEGATIVE (NEGATIVE); NITRITE,URINE NEGATIVE (NEGATIVE); PH,URINE 5 (4.5-8.0); PROTEIN,URINE 2+ (NEGATIVE); UROBILINOGEN,URINE NORMAL MG/DL (0.0-1.0)
[2019-06-14 13:50] LABS: ALANINE AMINOTRANSFERASE 73 U/L (12-78); ALBUMIN/GLOBULIN RATIO 0.9 (1.0-2.7); ALKALINE PHOSPHATASE 122 U/L (46-116); ANION GAP 4 mmol/L (5-15); ASPARTATE AMINO TRANSFERASE 67 U/L (15-37); BILIRUBIN,TOTAL 0.4 MG/DL (0.2-1.0); BLOOD UREA NITROGEN 12 mg/dL (7-18); CALCIUM 7.7 MG/DL (8.5-10.1); CARBON DIOXIDE 27 MMOL/L (21-32); CHLORIDE 100 MMOL/L (98-107); CREATININE 1.1 MG/DL (0.55-1.30); POTASSIUM 4.5 MMOL/L (3.5-5.1); SODIUM 131 MMOL/L (136-145)
--- NOTE | 2019-06-14 13:55 | Diagnostic Imaging Report ---
EXAM: XR Chest, 1 View CLINICAL HISTORY: CP TECHNIQUE: Frontal view of the chest. COMPARISON: Chest x-ray, 9 19, chest x-ray 8 19 FINDINGS: Lungs: Hyperinflated lungs of COPD. Scarring in the bilateral upper lobes, similar to prior studies. Lungs otherwise clear. Vascularity within normal limits. Pleural space: Unremarkable. No pneumothorax. Heart: Unremarkable. No cardiomegaly. Mediastinum: Unremarkable. Bones joints: Unremarkable. IMPRESSION: 1. Hyperinflated lungs of COPD. No acute process. 2. Scarring in the bilateral upper lobes, similar to prior studies.
[2019-06-14] MEDS ORDERED: Enoxaparin 80mg Inj SUBQ ONE (14:00)
[2019-06-14 15:05] VITALS: BP 113/78
--- NOTE | 2019-06-14 15:40 | NUR ---
ED Nurse Note: See AMA form. Patient understands the risks of leaving against medical advice.
--- NOTE | 2019-06-14 15:46 | NUR ---
patient refuse to be transferd to [facility] . patient was also told we will try to get him to another hospital where his insurance work with but patient refused and wants to sign out ama. patient also states he is doing fine now will follow up with his pmd
[2019-06-14 15:56] VITALS: BP 115/80
== END 2019-06-14 15:53 | disposition left against medical advice (07) ==
LOC: EDBD 13:01 → EMR 14:20
DX: I47.1 Supraventricular tachycardia (principal); R79.89 Other specified abnormal findings of blood chemistry; E11.65 Type 2 diabetes mellitus with hyperglycemia; Z86.73 Personal history of transient ischemic attack (TIA), and cerebral infarction without residual deficits
CPT/HCPCS: 36415; 71045; 80053; 80307; 81003; 82962; 83690; 84439; 84443; 84484; 85025; 93005; 96361; 96374; J1650; J1815; Z7502; 99291; J7030

== ENCOUNTER 2020-04-09 15:20 | Emergency (ER) | payer OTHER ==
[~2020-04-09] VITALS: Ht 185.4 cm; Wt 72.6 kg
[2020-04-09 15:30] VITALS: BP 97/71
--- NOTE | 2020-04-09 15:55 | Emergency Room Report ---
History of Present Illness General Chief Complaint: Generalized Weakness Source: Patient Present Illness HPI 54-year-old male with history of diabetes currently insulin-dependent and SVT brought in by paramedics from home due to 1 day of dizziness and weakness upon standing up. Denies any vertigo, headache and syncope. Denies any chest pain, shortness of breath, abdominal pain, nausea vomiting diarrhea. Denies any drug use and alcohol intake. Reports that he last used his normal units of insulin yesterday in the afternoon and has not used any insulin since nor has he taken his metformin. Accu-Chek appears to be a stable patient appears to be hypotensive. Denies any diarrhea, blood in stool, hematuria. Denies any unilateral generalized weakness. Patient is neurovascularly intact. 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 Patient History Past Medical History: see triage record Past Surgical History: none Pertinent Family History: none Social History: Reports: smoking Immunizations: UTD Reviewed Nursing Documentation: PMH: Agreed; PSxH: Agreed Nursing Documentation-PMH Hx Cardiac Problems: No Hx Hypertension: No Hx Asthma: Yes Hx Diabetes: Yes Hx Cancer: No Hx Gastrointestinal Problems: No Hx Cerebrovascular Accident: Yes Review of Systems All Other Systems: negative except mentioned in HPI Physical Exam Vital Signs Date Time Temp Pulse Resp B/P (MAP) Pulse Ox O2 Delivery O2 Flow Rate FiO2 04/09/20 15:10 98.2 83 18 97/71 (80) 99 Room Air Sp02 EP Interpretation: reviewed, abnormal - Low blood pressure General Appearance: no apparent distress, alert, GCS 15, non-toxic Head: normocephalic, atraumatic Eyes: bilateral eye normal inspection, bilateral eye PERRL ENT: hearing grossly normal, normal pharynx, no angioedema, normal voice Neck: full range of motion, supple, supple/symm/no masses Respiratory: chest non-tender, lungs clear, normal breath sounds, no rhonchi, no respiratory distress, no retraction, no wheezing, speaking full sentences Cardiovascular #1: regular rate, rhythm, no edema, no murmur Cardiovascular #2: 2+ carotid (R), 2+ carotid (L), 2+ radial (R), 2+ radial (L) , 2+ dorsalis pedis (R), 2+ dorsalis pedis (L) Gastrointestinal: normal bowel sounds, non tender, soft, non-distended, no guarding, no rebound Genitourinary: no CVA tenderness Musculoskeletal: back normal, no calf tenderness Neurologic: alert, motor strength/tone normal, oriented x3, sensory intact, responsive, speech normal Psychiatric: judgement/insight normal, memory normal, mood/affect normal, no suicidal/homicidal ideation Skin: no rash Lymphatic: no adenopathy Medical Decision Making PA Attestation All diagnoses and treatment plans were reviewed and discussed with my supervising physician Dr. Davalos Diagnostic Impression: Primary Impression: Orthostatic hypotension ER Course 54-year-old male with history of diabetes currently insulin-dependent and SVT brought in by paramedics from home due to 1 day of dizziness and weakness upon standing up. Denies any vertigo, headache and syncope. Denies any chest pain, shortness of breath, abdominal pain, nausea vomiting diarrhea. Denies any drug use and alcohol intake. Reports that he last used his normal units of insulin yesterday in the afternoon and has not used any insulin since nor has he taken his metformin. Accu-Chek appears to be a stable patient appears to be hypotensive. Denies any diarrhea, blood in stool, hematuria. Denies any unilateral generalized weakness. Patient is neurovascularly intact. Reports that he continues to smoke tobacco on a daily basis Ddx considered but are not limited to: Dizziness due to alcohol intoxication, dizziness unspecified, dizziness due to head trauma, dizziness secondary to cardiac reasons, orthostatic dizziness, hypotension Patient was to be evaluated for several hours to be observed and to see if orthostatic hypotension resolved Vital signs: are WNL, pt. is afebrile H&PE are most consistent with: Orthostatic dizziness, hypotension, old infarct frontal lobe(pt unaware, however left AMA) ORDERS: DKA order set, head CT no contrast, ER intervention: NS bolus Patient left AGAINST MEDICAL ADVICE I did not want to wait any longer and be evaluated patient was explained that has orthostatic hypotension and dizziness however patient left and signed AGAINST MEDICAL ADVICE. Stable time of discharge. EKG Diagnostic Results Rate: normal Rhythm: NSR ST Segments: no acute changes Other Impression Peaked T waves in anterior leads, no acute ST changes Chest X-Ray Diagnostic Results Chest X-Ray Diagnostic Results : Chest X-Ray Ordered: Yes # of Views/Limited/Complete: 1 View Indication: Other EP Interpretation: Yes PA Xray: Interpretation reviewed, by supervising MD, and agrees with findings. Interpretation: no consolidation, no effusion, no pneumothorax, no acute cardiopulmonary disease Impression: No acute disease Electronically Signed by: Litzy Ruiz PA-C CT/MRI/US Diagnostic Results CT/MRI/US Diagnostic Results : Imaging Test Ordered: Head CT no contrast Impression No acute intracranial bleed, possible old infarct white matter in frontal lobe Last Vital Signs Date Time Temp Pulse Resp B/P (MAP) Pulse Ox O2 Delivery O2 Flow Rate FiO2 04/09/20 15:10 98.2 83 18 97/71 (80) 99 Room Air Disposition: AGAINST MEDICAL ADVICE Condition: Stable Litzy Macias Apr 09, 2020 15:55
--- NOTE | 2020-04-09 16:01 | Diagnostic Imaging Report ---
Indication: Chest pain Technique: One view of the chest Comparison: 06/14/2019 Findings: The lungs are hyperinflated, with bullous changes and scarring seen in the upper lobes bilaterally. No definite infiltrates. No effusions. The heart size is normal. 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 No definite acute abnormality
--- NOTE | 2020-04-09 16:02 | Diagnostic Imaging Report ---
Indications: Headache Technique: Spiral acquisitions obtained through the brain. Angled axial and coronal 5 x 5 mm slices were reconstructed. Total dose length product 1125 mGycm. CTDI vol(s) 53 mGy. Dose reduction achieved using automated exposure control Comparison: None. Findings: Low-attenuation in the left high posterior frontal deep white matter may reflect old deep white matter infarct. No acute intracranial hemorrhage or edema. No mass effect nor midline shift. Normal dang-white differentiation otherwise. Normal size ventricles and extra-axial CSF spaces. The calvarium is intact. The mastoids are clear. The sinuses and orbits are unremarkable. 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 The CT scanner at [facility] is accredited by the [employer] and the scans are performed using protocols designed to limit radiation exposure to as low as reasonably achievable to attain images of sufficient resolution adequate for diagnostic evaluation.
[2020-04-09 16:10] LABS: ANION GAP 12 mmol/L (5-15); BLOOD UREA NITROGEN 16 mg/dL (7-18); CARBON DIOXIDE 25 MMOL/L (21-32); CHLORIDE 107 MMOL/L (98-107); CREATININE 0.8 MG/DL (0.55-1.30); POTASSIUM 4.1 MMOL/L (3.5-5.1); SODIUM 144 MMOL/L (136-145)
[2020-04-09 16:11] LABS: BASOPHILS % (AUTO) 0.9 % (0.0-2.0); EOSINOPHILS % (AUTO) 1.2 % (0.0-3.0); HEMATOCRIT 44.3 % (42.0-52.0); HEMOGLOBIN 14.6 G/DL (14.2-18.0); LYMPHOCYTES % (AUTO) 20.7 % (20.0-45.0); MEAN CORPUSCULAR VOLUME 93 FL (80-99); MONOCYTES % (AUTO) 6.5 % (1.0-10.0); NEUTROPHILS % (AUTO) 70.7 % (45.0-75.0); PLATELET COUNT 230 K/UL (150-450); RED BLOOD COUNT 4.76 M/UL (4.70-6.10); RED CELL DISTRIBUTION WIDTH 13.1 % (11.6-14.8); WHITE BLOOD COUNT 12.8 K/UL (4.8-10.8)
[2020-04-09 16:15] LABS: INR 1.1 (0.9-1.1)
[2020-04-09 16:21] LABS: ALANINE AMINOTRANSFERASE 34 U/L (12-78); ALBUMIN/GLOBULIN RATIO 0.7 (1.0-2.7); ALKALINE PHOSPHATASE 109 U/L (46-116); ASPARTATE AMINO TRANSFERASE 28 U/L (15-37); BILIRUBIN,TOTAL 0.4 MG/DL (0.2-1.0)
[2020-04-09 18:50] VITALS: BP 100/76
[2020-04-09 18:54] LABS: APPEARANCE,URINE SLIGHTLY CLOUDY; BILIRUBIN, URINE NEGATIVE (NEGATIVE); GLUCOSE, URINE (UA) 4+ (NEGATIVE); KETONES,URINE 2+ (NEGATIVE); LEUKOCYTE ESTERASE ,URINE 2+ (NEGATIVE); NITRITE,URINE NEGATIVE (NEGATIVE); PH,URINE 5 (4.5-8.0); PROTEIN,URINE 2+ (NEGATIVE); UROBILINOGEN,URINE 1 MG/DL (0.0-1.0)
[2020-04-09 18:55] LABS: COLOR,URINE YELLOW
== END 2020-04-09 18:50 | disposition left against medical advice (07) ==
LOC: EDBD 15:20 → EMR 15:30
DX: I95.1 Orthostatic hypotension (principal); E11.9 Type 2 diabetes mellitus without complications; Z86.73 Personal history of transient ischemic attack (TIA), and cerebral infarction without residual deficits; F17.200 Nicotine dependence, unspecified, uncomplicated
CPT/HCPCS: 36415; 70450; 71045; 80053; 80307; 81003; 82009; 83690; 83735; 83880; 84484; 85025; 85610; 85730; 93005; 96360; 96361; G0480; Z7502; 99284